=== PATIENT | female | born 1945 | race Caucasian/White ===

== ENCOUNTER 2017-08-01 13:18 | Inpatient (IN) ==
[2017-08-01 15:20] LABS: Basophils # 0.1 10*3/uL (0.0-0.2); Basophils % 0.5 % (0.0-0.8); Eosinophils # 0.3 10*3/uL (0.0-0.87); Hematocrit 36.9 VOL% (35.7-47.0); Hemoglobin 12.3 GM/DL (12.0-16.0); Immature Granulocytes % 0.2 %; Immature Granulocytes Absolute 0.02 #; Lymphocytes # 1.4 10*3/uL (1.4-4.0); Lymphocytes % 12.1 % (21.3-54.2); Mean Corpuscular HGB Conc 33.3 GM/DL (32-36); Mean Corpuscular Hemoglobin 31 PG (27-34); Mean Platelet Volume 11.2 FL (9.6-12.0); Monocytes # 1.4 10*3/uL (0.11-0.8); Monocytes % 12.8 % (1.7-12.7); Neutrophils % 71.4 % (38.7-73.9); Platelet Count 191 T/CUMM (130-400); Red Blood Count 4.01 MC/CUMM (3.8-5.5); Red Cell Distribution Width 12.7 % (9.3-17.3); White Blood Count 11.2 T/CUMM (4-12)
[2017-08-01 15:38] LABS: PT Patient Result 10.9 SECS; Partial Thromboplastin Time 30.7 SECS (0-40)
[2017-08-01 15:49] LABS: Albumin 3.2 G/DL (3.4-5.0); Bilirubin,Total 0.6 MG/DL (0.2-1.0); Calcium 8.7 MG/DL (8.5-10.1); Osmolality,Calculated 277.8 MOS/KG (273-304); Potassium 4.2 MMOL/L (3.5-5.1); Total Protein 7.6 G/DL (6.4-8.3)
[2017-08-01 15:50] LABS: Troponin I Only < 0.015 NG/ML (0.00-0.045)
[2017-08-01 16:57] LABS: Apearance,Urine CLOUDY (Clear); Bilirubin,Urine Negative (Negative); Blood, Urine Negative (Negative); Glucose,Urine (UA) Negative (Negative); Ketones,Urine Negative (Negative); Mucus,Urine Occasional /LPF (Occasional); Nitrite,Urine Negative (Negative); Protein,Urine 100 MG/DL; RBC,Urine 6 /HPF (0-4); Renal Epithelial Cells,Urine Occasional /HPF (<1); Squamous Epithelial Cell,Urine Few /HPF (0-10); Urine Color Yellow (Yellow); Urine Specific Gravity 1.018 (1.001-1.035); Urine Urobilinogen < 2.0 EU/DL (0.2-1.0); WBC,Urine 2 /HPF (0-6)
[2017-08-01] MEDS ORDERED: DOCUSATE SODIUM 100 MG CAPSULE PO PRN (17:35)
[2017-08-01] MEDS ORDERED: GLUCAGON 1 MG VIAL IM PRN (17:35)
[2017-08-01] MEDS ORDERED: MORPHINE 2 MG/1 ML SYRINGE IV PRN (17:35)
[2017-08-01] MEDS ORDERED: ONDANSETRON 4 MG/2 ML VIAL IV PRN (17:35)
[2017-08-01] MEDS ORDERED: ACETAMINOPHEN 325 MG TABLET PO PRN (17:35)
[2017-08-01] MEDS ORDERED: DEXTROSE 50% 25 GM/50 ML VIAL IV PRN (17:35)
[2017-08-01] MEDS ORDERED: diphenhydrAMINE CAP 25 MG CAPSULE PO PRN (17:35)
[2017-08-01] MEDS ORDERED: NITROGLYCERIN SL 0.4 MG TABLET SL PRN (17:38)
[2017-08-01] MEDS: INSULIN LISPRO 100 UNIT/ML SUBCUT SCH (20:46)
[2017-08-01] MEDS: INSULIN NPH 100 UNIT/ML SUBCUT SCH (20:46)
[2017-08-01] MEDS: ENOXAPARIN 30 MG/0.3 ML SYRINGE SUBCUT SCH (21:02)
[2017-08-01] MEDS: CARBAMIDE PEROXIDE 6.5% OTIC SOLN 15 ML BOTTLE BOTH EARS SCH (21:03)
[2017-08-01] MEDS: MAGNESIUM OXIDE 400 MG TABLET PO SCH (21:03)
[2017-08-01] MEDS: CARVEDILOL 25 MG TABLET PO SCH (21:03)
[2017-08-01] MEDS: FUROSEMIDE 40 MG/4 ML VIAL IV SCH (21:03)
[2017-08-01] MEDS: PANTOPRAZOLE 40 MG TABLET PO SCH (21:03)
[2017-08-02] MEDS: ALBUTEROL/IPRATROPIUM 3 ML NEB RESP TX SCH ×4 (01:35→20:00)
[2017-08-02 07:28] LABS: Albumin 3.1 G/DL (3.4-5.0); Bilirubin,Total 0.7 MG/DL (0.2-1.0); Calcium 8.7 MG/DL (8.5-10.1); Potassium 4.2 MMOL/L (3.5-5.1); Total Protein 6.6 G/DL (6.4-8.3); VLDL CHOLESTEROL 20.6 MG/DL
[2017-08-02 07:29] LABS: Risk Ratio 2.36; Thyroid Stimulating Hormone 1.92 uIU/ml (0.358-3.74)
[2017-08-02] MEDS: INSULIN LISPRO 100 UNIT/ML SUBCUT SCH ×2 (08:26→16:10)
[2017-08-02] MEDS: INSULIN NPH 100 UNIT/ML SUBCUT SCH ×2 (08:27→16:10)
[2017-08-02] MEDS: FUROSEMIDE 40 MG/4 ML VIAL IV SCH ×2 (08:38→21:18)
[2017-08-02] MEDS: ASPIRIN EC 81 MG TABLET PO SCH (08:39)
[2017-08-02] MEDS: VALSARTAN 160 MG TABLET PO SCH (08:39)
[2017-08-02] MEDS: MAGNESIUM OXIDE 400 MG TABLET PO SCH ×2 (08:39→21:17)
[2017-08-02] MEDS: CLOPIDOGREL 75 MG TABLET PO SCH (08:40)
[2017-08-02] MEDS: LOVASTATIN 20 MG TABLET PO SCH (08:40)
[2017-08-02] MEDS: CARVEDILOL 25 MG TABLET PO SCH ×2 (08:40→21:17)
[2017-08-02] MEDS: PANTOPRAZOLE 40 MG TABLET PO SCH ×2 (08:40→21:18)
[2017-08-02] MEDS: CARBAMIDE PEROXIDE 6.5% OTIC SOLN 15 ML BOTTLE BOTH EARS SCH ×2 (08:48→21:18)
[2017-08-02] MEDS: NYSTATIN 500,000 UNIT/5 ML UDCUP SWISH/SWAL SCH ×2 (17:43→21:18)
[2017-08-02] MEDS: PHENOL 1.4% THROAT SPRAY 177 ML BOTTLE PO PRN ×2 (17:45→21:19)
[2017-08-02] MEDS: ENOXAPARIN 30 MG/0.3 ML SYRINGE SUBCUT SCH (21:18)
[2017-08-03] MEDS ORDERED: ALUMINUM/MAGNES/SIMETH MAX STR 30 ML UDCUP PO PRN (00:30)
[2017-08-03] MEDS: ALBUTEROL/IPRATROPIUM 3 ML NEB RESP TX SCH ×4 (01:00→19:08)
[2017-08-03 06:33] LABS: Basophils # 0.1 10*3/uL (0.0-0.2); Basophils % 0.7 % (0.0-0.8); Eosinophils # 0.7 10*3/uL (0.0-0.87); Hematocrit 35.5 VOL% (35.7-47.0); Hemoglobin 11.6 GM/DL (12.0-16.0); Immature Granulocytes % 0.2 %; Immature Granulocytes Absolute 0.02 #; Lymphocytes # 2.2 10*3/uL (1.4-4.0); Lymphocytes % 24.3 % (21.3-54.2); Mean Corpuscular HGB Conc 32.7 GM/DL (32-36); Mean Corpuscular Hemoglobin 30 PG (27-34); Mean Platelet Volume 11.4 FL (9.6-12.0); Monocytes # 1.1 10*3/uL (0.11-0.8); Monocytes % 11.8 % (1.7-12.7); Neutrophils # 5.1 10*3/uL (1.4-7.4); Platelet Count 225 T/CUMM (130-400); Red Cell Distribution Width 12.8 % (9.3-17.3); White Blood Count 9.2 T/CUMM (4-12)
[2017-08-03 06:51] LABS: Calcium 8.3 MG/DL (8.5-10.1); Osmolality,Calculated 285.7 MOS/KG (273-304)
[2017-08-03] MEDS: INSULIN NPH 100 UNIT/ML SUBCUT SCH ×2 (09:31→18:38)
[2017-08-03] MEDS: INSULIN LISPRO 100 UNIT/ML SUBCUT SCH ×2 (09:33→18:58)
[2017-08-03] MEDS: ASPIRIN EC 81 MG TABLET PO SCH (09:35)
[2017-08-03] MEDS: VALSARTAN 160 MG TABLET PO SCH (09:36)
[2017-08-03] MEDS: CARVEDILOL 25 MG TABLET PO SCH ×2 (09:36→21:00)
[2017-08-03] MEDS: MAGNESIUM OXIDE 400 MG TABLET PO SCH ×2 (09:37→21:00)
[2017-08-03] MEDS: LOVASTATIN 20 MG TABLET PO SCH (09:37)
[2017-08-03] MEDS: NYSTATIN 500,000 UNIT/5 ML UDCUP SWISH/SWAL SCH ×3 (09:38→22:19)
[2017-08-03] MEDS: CLOPIDOGREL 75 MG TABLET PO SCH (09:38)
[2017-08-03] MEDS: PANTOPRAZOLE 40 MG TABLET PO SCH ×2 (09:39→21:00)
[2017-08-03] MEDS: FUROSEMIDE 40 MG/4 ML VIAL IV SCH ×2 (09:40→21:01)
[2017-08-03] MEDS: CARBAMIDE PEROXIDE 6.5% OTIC SOLN 15 ML BOTTLE BOTH EARS SCH ×2 (18:30→21:02)
[2017-08-03] MEDS: ENOXAPARIN 30 MG/0.3 ML SYRINGE SUBCUT SCH (21:01)
[2017-08-04] MEDS: ALBUTEROL/IPRATROPIUM 3 ML NEB RESP TX SCH ×4 (00:46→19:04)
[2017-08-04 05:46] LABS: Basophils # 0.1 10*3/uL (0.0-0.2); Basophils % 0.6 % (0.0-0.8); Eosinophils % 10.7 % (0.00-10.9); Hematocrit 35.6 VOL% (35.7-47.0); Immature Granulocytes % 0.6 %; Immature Granulocytes Absolute 0.06 #; Lymphocytes # 2.3 10*3/uL (1.4-4.0); Lymphocytes % 23.2 % (21.3-54.2); Mean Corpuscular HGB Conc 33.7 GM/DL (32-36); Mean Corpuscular Hemoglobin 31 PG (27-34); Mean Corpuscular Volume 90.4 FL (87-102); Mean Platelet Volume 10.7 FL (9.6-12.0); Monocytes % 10.5 % (1.7-12.7); Neutrophils # 5.3 10*3/uL (1.4-7.4); Neutrophils % 54.4 % (38.7-73.9); Platelet Count 249 T/CUMM (130-400); Red Blood Count 3.94 MC/CUMM (3.8-5.5); Red Cell Distribution Width 12.5 % (9.3-17.3); White Blood Count 9.8 T/CUMM (4-12)
[2017-08-04 06:09] LABS: Platelet Estimate Normal
[2017-08-04 06:10] LABS: Microcytosis Slight
[2017-08-04 06:13] LABS: Calcium 8.6 MG/DL (8.5-10.1); Osmolality,Calculated 289.1 MOS/KG (273-304); Potassium 3.9 MMOL/L (3.5-5.1)
[2017-08-04] MEDS: cloNIDine 0.1 MG TABLET PO PRN (09:19)
[2017-08-04] MEDS: CARVEDILOL 25 MG TABLET PO SCH ×2 (09:19→21:22)
[2017-08-04] MEDS: LOVASTATIN 20 MG TABLET PO SCH (09:20)
[2017-08-04] MEDS: MAGNESIUM OXIDE 400 MG TABLET PO SCH ×2 (09:20→21:22)
[2017-08-04] MEDS: ASPIRIN EC 81 MG TABLET PO SCH (09:20)
[2017-08-04] MEDS: CLOPIDOGREL 75 MG TABLET PO SCH (09:20)
[2017-08-04] MEDS: PANTOPRAZOLE 40 MG TABLET PO SCH ×2 (09:25→21:21)
[2017-08-04] MEDS: INSULIN NPH 100 UNIT/ML SUBCUT SCH ×2 (09:26→17:42)
[2017-08-04] MEDS: FUROSEMIDE 40 MG/4 ML VIAL IV SCH ×2 (09:27→21:22)
[2017-08-04] MEDS: VALSARTAN 160 MG TABLET PO SCH (12:59)
[2017-08-04] MEDS: CARBAMIDE PEROXIDE 6.5% OTIC SOLN 15 ML BOTTLE BOTH EARS SCH ×2 (13:01→21:28)
[2017-08-04] MEDS: CIPROFLOXACIN 250 MG TABLET PO SCH (13:18)
[2017-08-04] MEDS: NYSTATIN 500,000 UNIT/5 ML UDCUP SWISH/SWAL SCH ×3 (13:18→21:21)
[2017-08-04] MEDS: INSULIN LISPRO 100 UNIT/ML SUBCUT SCH ×2 (13:18→21:31)
[2017-08-04] MEDS: ENOXAPARIN 30 MG/0.3 ML SYRINGE SUBCUT SCH (21:21)
[2017-08-05] MEDS: ALBUTEROL/IPRATROPIUM 3 ML NEB RESP TX SCH ×2 (01:26→07:05)
[2017-08-05] MEDS: CIPROFLOXACIN 250 MG TABLET PO SCH ×2 (02:19→08:24)
[2017-08-05 06:18] LABS: Calcium 8.8 MG/DL (8.5-10.1); Osmolality,Calculated 287.4 MOS/KG (273-304); Potassium 4.2 MMOL/L (3.5-5.1)
[2017-08-05 07:01] VITALS: BP 140/65
[2017-08-05] MEDS: INSULIN NPH 100 UNIT/ML SUBCUT SCH (08:21)
[2017-08-05] MEDS: LOVASTATIN 20 MG TABLET PO SCH (08:23)
[2017-08-05] MEDS: cloNIDine 0.1 MG TABLET PO PRN (08:23)
[2017-08-05] MEDS: CARVEDILOL 25 MG TABLET PO SCH (08:24)
[2017-08-05] MEDS: ASPIRIN EC 81 MG TABLET PO SCH (08:24)
[2017-08-05] MEDS: CLOPIDOGREL 75 MG TABLET PO SCH (08:24)
[2017-08-05] MEDS: FUROSEMIDE 40 MG/4 ML VIAL IV SCH (08:25)
== END 2017-08-05 11:30 | disposition home or self-care (01) | DRG 291 ==
LOC: SUATTDRO → N.ED 13:18 → SUATTDRO 17:35 → N.EDINP 17:35 → N.5E 19:02
PROVIDERS: ADMIT Internal Medicine Geriatric Medicine; ATTEND Internal Medicine

== ENCOUNTER 2019-05-12 23:13 | Observation (INO) ==
[2019-05-12] MEDS ORDERED: NITROGLYCERIN SL 0.4 MG TABLET SL STA (23:51)
[2019-05-13 00:10] LABS: Basophils # 0.1 10*3/uL (0.0-0.2); Basophils % 0.8 % (0.0-0.8); Eosinophils # 0.4 10*3/uL (0.0-0.87); Hematocrit 33.5 VOL% (35.7-47.0); Hemoglobin 10.4 GM/DL (12.0-16.0); Immature Granulocytes % 0.4 %; Immature Granulocytes Absolute 0.04 #; Lymphocytes # 1.6 10*3/uL (1.4-4.0); Mean Corpuscular Volume 89.6 FL (87-102); Mean Platelet Volume 10.9 FL (9.6-12.0); Monocytes % 7.6 % (1.7-12.7); Neutrophils % 71.2 % (38.7-73.9); Platelet Count 213 T/CUMM (130-400); Red Blood Count 3.74 MC/CUMM (3.8-5.5); Red Cell Distribution Width 14.5 % (9.3-17.3); White Blood Count 10.1 T/CUMM (4-12)
[2019-05-13 00:32] LABS: Alanine Aminotransferase 19 U/L (13-56); Albumin 3.3 G/DL (3.4-5.0); Alkaline Phosphatase 100 U/L (45-117); Aspartate Amino Transferase 22 U/L (0-37); Bilirubin,Total < 0.39 MG/DL (0.2-1.0); Blood Urea Nitrogen 22 MG/DL (7-18); Calcium 8.6 MG/DL (8.5-10.1); Estimated Glom Filtration Rate 35 ML/MIN; Glucose 251 MG/DL (74-106); Osmolality,Calculated 293.1 MOS/KG (273-304); Total Protein 6.6 G/DL (6.4-8.3)
[2019-05-13] MEDS ORDERED: FUROSEMIDE 40 MG/4 ML VIAL IV STA (01:02)
[2019-05-13 01:06] LABS: Apearance,Urine CLEAR (Clear); Bacteria,Urine Occasional /HPF (Few); Bilirubin,Urine Negative (Negative); Blood, Urine Negative (Negative); Glucose,Urine (UA) 50 mg/dL (Negative); Ketones,Urine Negative (Negative); Nitrite,Urine Negative (Negative); Protein,Urine 100 MG/DL; RBC,Urine <1 /HPF (0-4); Urine Color Colorless (Yellow); Urine Specific Gravity 1.009 (1.001-1.035); Urine Urobilinogen < 2.0 EU/DL (0.2-1.0); WBC,Urine 1 /HPF (0-6)
[2019-05-13] MEDS ORDERED: MAGNESIUM SULF RIDER 4 GM in PREMIX 1 EACH IV PRN (02:53)
[2019-05-13] MEDS ORDERED: MAGNESIUM SULF RIDER 2 GM in PREMIX 1 EACH IV PRN (02:53)
[2019-05-13] MEDS ORDERED: DEXTROSE 50% 25 GM/50 ML VIAL IV PRN ×2 (02:53)
[2019-05-13] MEDS ORDERED: ACETAMINOPHEN 325 MG TABLET PO PRN (02:53)
[2019-05-13] MEDS ORDERED: GLUCAGON 1 MG VIAL IM PRN (02:53)
[2019-05-13] MEDS: INSULIN REGULAR 100 UNIT/ML SUBCUT SCH ×5 (05:37→21:18)
[2019-05-13 06:00] LABS: Basophils # 0.1 10*3/uL (0.0-0.2); Basophils % 0.8 % (0.0-0.8); Eosinophils # 0.3 10*3/uL (0.0-0.87); Hematocrit 30.6 VOL% (35.7-47.0); Hemoglobin 9.8 GM/DL (12.0-16.0); Immature Granulocytes % 0.3 %; Immature Granulocytes Absolute 0.03 #; Lymphocytes # 1.6 10*3/uL (1.4-4.0); Lymphocytes % 17.8 % (21.3-54.2); Mean Corpuscular Volume 88.4 FL (87-102); Mean Platelet Volume 11.5 FL (9.6-12.0); Monocytes % 10.4 % (1.7-12.7); Neutrophils % 67.7 % (38.7-73.9); Platelet Count 215 T/CUMM (130-400); Red Blood Count 3.46 MC/CUMM (3.8-5.5); Red Cell Distribution Width 14.6 % (9.3-17.3); White Blood Count 9.1 T/CUMM (4-12)
[2019-05-13 06:32] LABS: Albumin 3.1 G/DL (3.4-5.0); Bilirubin,Total 0.7 MG/DL (0.2-1.0); Calcium 8.8 MG/DL (8.5-10.1); Osmolality,Calculated 293.8 MOS/KG (273-304); Risk Ratio 2.37; Total Protein 6.7 G/DL (6.4-8.3); VLDL CHOLESTEROL 25.4 MG/DL
[2019-05-13] MEDS: ENOXAPARIN 40 MG/0.4 ML SYRINGE SUBCUT SCH (09:25)
[2019-05-13] MEDS: FUROSEMIDE 40 MG/4 ML VIAL IV SCH ×2 (09:25→17:14)
[2019-05-13] MEDS: ASPIRIN CHEW 81 MG TABLET PO SCH (09:26)
[2019-05-13] MEDS: PANTOPRAZOLE 40 MG TABLET PO SCH (09:26)
[2019-05-14] MEDS: LABETALOL 20 MG/4 ML SYRINGE IV PRN (01:41)
[2019-05-14] MEDS: ASPIRIN CHEW 81 MG TABLET PO SCH (08:24)
[2019-05-14] MEDS: PANTOPRAZOLE 40 MG TABLET PO SCH (08:24)
[2019-05-14] MEDS: ENOXAPARIN 40 MG/0.4 ML SYRINGE SUBCUT SCH (08:25)
[2019-05-14] MEDS: INSULIN REGULAR 100 UNIT/ML SUBCUT SCH ×4 (08:26→21:19)
[2019-05-14] MEDS: FUROSEMIDE 40 MG/4 ML VIAL IV SCH (08:27)
[2019-05-14 10:10] LABS: Calcium 8.5 MG/DL (8.5-10.1); Osmolality,Calculated 295.4 MOS/KG (273-304)
[2019-05-14] MEDS: ONDANSETRON 4 MG/2 ML VIAL IV PRN (23:30)
[2019-05-15] MEDS: LABETALOL 20 MG/4 ML SYRINGE IV PRN (04:49)
[2019-05-15 05:00] LABS: Calcium 8.6 MG/DL (8.5-10.1); Osmolality,Calculated 301.8 MOS/KG (273-304)
[2019-05-15] MEDS: INSULIN REGULAR 100 UNIT/ML SUBCUT SCH ×2 (08:20→12:42)
[2019-05-15] MEDS: ENOXAPARIN 40 MG/0.4 ML SYRINGE SUBCUT SCH (08:20)
[2019-05-15] MEDS: ASPIRIN CHEW 81 MG TABLET PO SCH (08:20)
[2019-05-15] MEDS: PANTOPRAZOLE 40 MG TABLET PO SCH (08:20)
[2019-05-15] MEDS ORDERED: FUROSEMIDE 40 MG TABLET PO SCH (09:00)
[2019-05-15] MEDS ORDERED: LOSARTAN 50 MG TABLET PO SCH (09:15)
[2019-05-15] MEDS ORDERED: ESCITALOPRAM 10 MG TABLET PO SCH (09:15)
[2019-05-15] MEDS ORDERED: MULTIVITAMIN (CENTRUM) TABLET PO SCH (09:15)
[2019-05-15] MEDS ORDERED: CLOPIDOGREL 75 MG TABLET PO SCH (09:30)
[2019-05-15] MEDS ORDERED: ASPIRIN EC 81 MG TABLET PO SCH (09:30)
[2019-05-15] MEDS ORDERED: DOXAZOSIN 2 MG TABLET PO SCH (09:30)
[2019-05-15] MEDS ORDERED: SPIRONOLACTONE 50 MG TABLET PO SCH (09:30)
[2019-05-15] MEDS ORDERED: DOXAZOSIN 1 MG TABLET PO SCH (09:30)
[2019-05-15] MEDS ORDERED: carvediloL 25 MG TABLET PO SCH (09:30)
[2019-05-15] MEDS: ONDANSETRON 4 MG/2 ML VIAL IV PRN (12:43)
[2019-05-15 16:52] VITALS: BP 150/57
[2019-05-15] MEDS ORDERED: ATORVASTATIN 80 MG TABLET PO SCH (21:00)
[2019-05-15] MEDS ORDERED: BUDESONIDE/FORMOTEROL 160-4.5 INHALER 6 GM INH SCH (21:00)
[2019-05-16] MEDS ORDERED: LEVOTHYROXINE 25 MCG TABLET PO SCH (06:30)
[2019-05-16] MEDS ORDERED: MAGNESIUM OXIDE 400 MG TABLET PO SCH (09:00)
[2019-05-16] MEDS ORDERED: MONTELUKAST 10 MG TABLET PO SCH (09:00)
== END 2019-05-15 17:00 | disposition home or self-care (01) | DRG 291 ==
LOC: N.ED 23:13 → N.EDINP 05-13 02:53 → SUATTDRO 05-13 02:53 → INTOOBSV 05-13 02:53 → N.2E 05-13 03:17
PROVIDERS: ADMIT Internal Medicine; ATTEND Internal Medicine

== ENCOUNTER 2020-02-04 00:08 | Observation (INO) ==
[2020-02-04] MEDS ORDERED: FUROSEMIDE 40 MG/4 ML VIAL IV STA (00:36)
[2020-02-04] MEDS ORDERED: NITROGLYCERIN 2% OINT 1 INCH/GM PACK TOP STA (00:36)
[2020-02-04] MEDS ORDERED: ASPIRIN 325 MG TABLET PO STA (00:37)
[2020-02-04 00:56] LABS: ABG Base Excess -3.6 MMOL/L (-2.5-2.5); ABG HCO3 21.4 MMOL/L (20-26); ABG Oxygen Saturation 99.4 % (95-100); ABG TCO2 20.1 MMOL/L (23-27); Allen Test Positive
[2020-02-04 01:35] LABS: Basophils % 0.5 % (0.0-0.8); Eosinophils # 0.6 10*3/uL (0.0-0.87); Eosinophils % 6.4 % (0.00-10.9); Hematocrit 24.6 VOL% (35.7-47.0); Hemoglobin 7.8 GM/DL (12.0-16.0); Immature Granulocytes % 0.3 %; Immature Granulocytes Absolute 0.03 #; Lymphocytes # 1.2 10*3/uL (1.4-4.0); Lymphocytes % 13.9 % (21.3-54.2); Mean Corpuscular HGB Conc 31.7 GM/DL (32-36); Mean Corpuscular Volume 87.5 FL (87-102); Mean Platelet Volume 11.7 FL (9.6-12.0); Monocytes % 8.8 % (1.7-12.7); Neutrophils % 70.1 % (38.7-73.9); Platelet Count 134 T/CUMM (130-400); Red Blood Count 2.81 MC/CUMM (3.8-5.5); Red Cell Distribution Width 19.9 % (9.3-17.3); White Blood Count 8.7 T/CUMM (4-12)
[2020-02-04 01:55] LABS: Albumin 2.8 G/DL (3.4-5.0); Bilirubin,Total 0.5 MG/DL (0.2-1.0); Calcium 8.2 MG/DL (8.5-10.1); Total Protein 6.5 G/DL (6.4-8.3)
[2020-02-04 02:08] LABS: INR 1.1; PT Patient Result 11.4 SECS (9.8-11.9)
[2020-02-04] MEDS ORDERED: ACETAMINOPHEN 325 MG TABLET PO PRN (04:04)
[2020-02-04] MEDS ORDERED: DEXTROSE 50% 25 GM/50 ML VIAL IV PRN (04:04)
[2020-02-04] MEDS ORDERED: GLUCAGON 1 MG VIAL IM PRN (04:04)
[2020-02-04 04:21] LABS: Ferritin 33.2 ng/ml (8-252)
[2020-02-04 05:19] LABS: % Iron Saturation 14.6 % (18-50)
[2020-02-04] MEDS: INSULIN REGULAR 100 UNIT/ML SUBCUT SCH ×4 (08:49→20:17)
[2020-02-04] MEDS: PANTOPRAZOLE 40 MG TABLET PO SCH (08:50)
[2020-02-04] MEDS: predniSONE 20 MG TABLET PO SCH (08:50)
[2020-02-04] MEDS: ASPIRIN EC 81 MG TABLET PO SCH (08:51)
[2020-02-04] MEDS: MULTIVITAMIN (CENTRUM) TABLET PO SCH (08:51)
[2020-02-04] MEDS: ENOXAPARIN 40 MG/0.4 ML SYRINGE SUBCUT SCH (08:51)
[2020-02-04] MEDS: FUROSEMIDE 40 MG/4 ML VIAL IV SCH ×2 (08:51→16:03)
[2020-02-04] MEDS: carvediloL 25 MG TABLET PO SCH ×2 (08:51→16:30)
[2020-02-04] MEDS: ASCORBIC ACID 500 MG TABLET PO SCH (08:52)
[2020-02-04] MEDS ORDERED: ZINC SULFATE 220 MG CAPSULE PO SCH (09:00)
[2020-02-04] MEDS ORDERED: hydrALAZINE 25 MG TABLET PO SCH (09:00)
[2020-02-04] MEDS: ALBUTEROL INHALER 18 GM INH SCH ×3 (10:28→20:22)
[2020-02-04] MEDS: DOXYCYCLINE HYCLATE INJ 100 MG in SODIUM CHLORIDE 0.9% 100 ML IV SCH ×2 (10:31→21:18)
[2020-02-04] MEDS ORDERED: ATORVASTATIN 80 MG TABLET PO SCH (21:00)
[2020-02-04] MEDS ORDERED: CLOPIDOGREL 75 MG TABLET PO SCH (21:00)
[2020-02-05] MEDS: ALBUTEROL INHALER 18 GM INH SCH ×2 (00:47→08:11)
[2020-02-05 05:23] LABS: Basophils % 0.3 % (0.0-0.8); Eosinophils % 0.4 % (0.00-10.9); Hematocrit 25.1 VOL% (35.7-47.0); Hemoglobin 7.9 GM/DL (12.0-16.0); Immature Granulocytes % 0.5 %; Immature Granulocytes Absolute 0.05 #; Lymphocytes # 1.5 10*3/uL (1.4-4.0); Lymphocytes % 14.6 % (21.3-54.2); Mean Corpuscular HGB Conc 31.5 GM/DL (32-36); Mean Corpuscular Volume 85.7 FL (87-102); Monocytes % 10.2 % (1.7-12.7); Platelet Count 208 T/CUMM (130-400); Red Blood Count 2.93 MC/CUMM (3.8-5.5); Red Cell Distribution Width 20.3 % (9.3-17.3)
[2020-02-05] MEDS ORDERED: LEVOTHYROXINE 25 MCG TABLET PO SCH (06:00)
[2020-02-05 06:10] LABS: Albumin 2.8 G/DL (3.4-5.0); Bilirubin,Total 1.3 MG/DL (0.2-1.0); Calcium 8.3 MG/DL (8.5-10.1); Osmolality,Calculated 287.1 MOS/KG (273-304); Thyroid Stimulating Hormone 1.66 uIU/ml (0.358-3.74); Total Protein 6.7 G/DL (6.4-8.3)
[2020-02-05] MEDS: INSULIN REGULAR 100 UNIT/ML SUBCUT SCH ×2 (07:36→11:51)
[2020-02-05] MEDS: MULTIVITAMIN (CENTRUM) TABLET PO SCH (08:11)
[2020-02-05] MEDS: PANTOPRAZOLE 40 MG TABLET PO SCH (08:11)
[2020-02-05] MEDS: ASPIRIN EC 81 MG TABLET PO SCH (08:11)
[2020-02-05] MEDS: ASCORBIC ACID 500 MG TABLET PO SCH (08:11)
[2020-02-05] MEDS: predniSONE 20 MG TABLET PO SCH (08:11)
[2020-02-05] MEDS: carvediloL 25 MG TABLET PO SCH (08:11)
[2020-02-05] MEDS: FUROSEMIDE 40 MG/4 ML VIAL IV SCH (08:12)
[2020-02-05] MEDS: ENOXAPARIN 40 MG/0.4 ML SYRINGE SUBCUT SCH (08:12)
[2020-02-05] MEDS: DOXYCYCLINE HYCLATE INJ 100 MG in SODIUM CHLORIDE 0.9% 100 ML IV SCH (10:14)
[2020-02-05 11:41] VITALS: BP 132/50
== END 2020-02-05 11:58 | disposition home or self-care (01) ==
LOC: N.ED 00:08 → N.EDINP 00:08 → N.CC 06:08
PROVIDERS: ADMIT Internal Medicine; ATTEND Internal Medicine

== ENCOUNTER 2020-05-05 09:01 | Inpatient (IN) ==
[2020-05-05] MEDS ORDERED: ASPIRIN 325 MG TABLET PO STA (09:58)
[2020-05-05 11:33] LABS: Basophils % 0.6 % (0.0-0.8); Eosinophils # 0.2 10*3/uL (0.0-0.87); Eosinophils % 3.1 % (0.00-10.9); Hematocrit 22.7 VOL% (35.7-47.0); Hemoglobin 7.3 GM/DL (12.0-16.0); Immature Granulocytes % 0.6 %; Immature Granulocytes Absolute 0.04 #; Lymphocytes # 1.1 10*3/uL (1.4-4.0); Lymphocytes % 15.4 % (21.3-54.2); Mean Corpuscular HGB Conc 32.2 GM/DL (32-36); Mean Corpuscular Volume 93.4 FL (87-102); Mean Platelet Volume 11.4 FL (9.6-12.0); Neutrophils % 73.3 % (38.7-73.9); Platelet Count 200 T/CUMM (130-400); Red Blood Count 2.43 MC/CUMM (3.8-5.5)
[2020-05-05] MEDS ORDERED: MORPHINE 4 MG/1 ML VIAL IV STA (11:37)
[2020-05-05] MEDS ORDERED: ONDANSETRON 4 MG/2 ML VIAL IV STA (11:37)
[2020-05-05 12:24] LABS: Albumin 3.7 G/DL (3.4-5.0); Bilirubin,Total 0.4 MG/DL (0.2-1.0); Calcium 8.7 MG/DL (8.5-10.1); Osmolality,Calculated 309.1 MOS/KG (273-304)
[2020-05-05] MEDS ORDERED: ALBUTEROL 2.5 MG/3 ML NEB RESP TX STA (12:34)
[2020-05-05] MEDS ORDERED: DEXTROSE 50% 25 GM/50 ML VIAL IV STA (12:40)
[2020-05-05] MEDS ORDERED: INSULIN REGULAR 100 UNIT/ML IV STA (12:40)
[2020-05-05] MEDS ORDERED: FUROSEMIDE 40 MG/4 ML VIAL IV STA (12:45)
[2020-05-05] MEDS ORDERED: DEXTROSE 50% 25 GM/50 ML SYRINGE IV ONE (12:49)
[2020-05-05] MEDS ORDERED: ONDANSETRON 4 MG/2 ML VIAL IV PRN (13:50)
[2020-05-05] MEDS ORDERED: DEXTROSE 50% 25 GM/50 ML VIAL IV PRN ×2 (13:50)
[2020-05-05] MEDS ORDERED: ACETAMINOPHEN 325 MG TABLET PO PRN (13:50)
[2020-05-05] MEDS ORDERED: GLUCAGON 1 MG VIAL IM PRN ×2 (13:50)
[2020-05-05] MEDS ORDERED: FUROSEMIDE 100 MG/10 ML VIAL ONE (13:52)
[2020-05-05] MEDS ORDERED: ACETAMINOPHEN 500 MG TABLET PO PRN (15:00)
[2020-05-05] MEDS ORDERED: BUDESONIDE/FORMOTEROL 160-4.5 INHALER 6 GM INH PRN (15:00)
[2020-05-05] MEDS: MAGNESIUM OXIDE 400 MG TABLET PO SCH (17:52)
[2020-05-05] MEDS: INSULIN LISPRO 100 UNIT/ML SUBCUT SCH ×3 (17:52→23:55)
[2020-05-05] MEDS: ALBUTEROL 2.5 MG/3 ML NEB RESP TX SCH (19:24)
[2020-05-05] MEDS ORDERED: ENOXAPARIN 30 MG/0.3 ML SYRINGE SUBCUT SCH (21:00)
[2020-05-05] MEDS: ATORVASTATIN 80 MG TABLET PO SCH (22:01)
[2020-05-05] MEDS: carvediloL 25 MG TABLET PO SCH (22:02)
[2020-05-05] MEDS: FERROUS SULFATE 325 MG TABLET PO SCH (22:02)
[2020-05-05] MEDS: HEPARIN 5,000 UNIT/1 ML VIAL SUBCUT SCH (22:02)
[2020-05-06] MEDS: ALBUTEROL 2.5 MG/3 ML NEB RESP TX SCH ×4 (02:05→20:22)
[2020-05-06 05:47] LABS: Basophils # 0.1 10*3/uL (0.0-0.2); Eosinophils # 0.5 10*3/uL (0.0-0.87); Eosinophils % 7.5 % (0.00-10.9); Hematocrit 20.8 VOL% (35.7-47.0); Hemoglobin 6.6 GM/DL (12.0-16.0); Immature Granulocytes % 0.4 %; Immature Granulocytes Absolute 0.03 #; Lymphocytes # 1.8 10*3/uL (1.4-4.0); Lymphocytes % 26.2 % (21.3-54.2); Mean Corpuscular HGB Conc 31.7 GM/DL (32-36); Mean Corpuscular Volume 93.3 FL (87-102); Mean Platelet Volume 11.3 FL (9.6-12.0); Monocytes % 12.1 % (1.7-12.7); Neutrophils % 52.8 % (38.7-73.9); Platelet Count 171 T/CUMM (130-400); Red Blood Count 2.23 MC/CUMM (3.8-5.5); Red Cell Distribution Width 15.1 % (9.3-17.3); White Blood Count 6.9 T/CUMM (4-12)
[2020-05-06] MEDS: HEPARIN 5,000 UNIT/1 ML VIAL SUBCUT SCH ×3 (06:07→21:31)
[2020-05-06 06:33] LABS: Calcium 8.5 MG/DL (8.5-10.1); Osmolality,Calculated 306.5 MOS/KG (273-304)
[2020-05-06] MEDS ORDERED: SODIUM CHLORIDE 0.9% 1,000 ML IV PRN (07:38)
[2020-05-06] MEDS: INSULIN LISPRO 100 UNIT/ML SUBCUT SCH ×4 (07:41→21:43)
[2020-05-06] MEDS ORDERED: SODIUM POLYSTYRENE SULFATE 15 GM/60 ML BOTTLE PO ONE ×2 (08:09→17:35)
[2020-05-06] MEDS ORDERED: LOSARTAN 50 MG TABLET PO SCH (09:00)
[2020-05-06] MEDS ORDERED: FUROSEMIDE 40 MG/4 ML VIAL IV SCH (09:00)
[2020-05-06] MEDS: DOXAZOSIN 1 MG TABLET PO SCH (10:16)
[2020-05-06] MEDS: carvediloL 25 MG TABLET PO SCH ×2 (10:16→21:31)
[2020-05-06] MEDS: ZINC GLUCONATE 50 MG TABLET PO SCH (10:16)
[2020-05-06] MEDS: ESCITALOPRAM 10 MG TABLET PO SCH (10:16)
[2020-05-06] MEDS: FERROUS SULFATE 325 MG TABLET PO SCH ×2 (10:17→21:31)
[2020-05-06] MEDS: CHOLECALCIFEROL 1,000 UNIT TABLET PO SCH (10:17)
[2020-05-06] MEDS: CLOPIDOGREL 75 MG TABLET PO SCH (10:17)
[2020-05-06] MEDS: MAGNESIUM OXIDE 400 MG TABLET PO SCH ×2 (10:17→17:46)
[2020-05-06] MEDS: MULTIVITAMIN (CENTRUM) TABLET PO SCH (10:17)
[2020-05-06] MEDS: ASCORBIC ACID 500 MG TABLET PO SCH (10:17)
[2020-05-06] MEDS: ATORVASTATIN 80 MG TABLET PO SCH (21:31)
[2020-05-07] MEDS: ALBUTEROL 2.5 MG/3 ML NEB RESP TX SCH ×4 (00:53→21:35)
[2020-05-07 04:53] LABS: ABG Base Excess -3.7 MMOL/L (-2.5-2.5); ABG HCO3 21.4 MMOL/L (20-26); ABG Oxygen Saturation 98.3 % (95-100); ABG PCO2 37.8 MM HG (35-48); ABG TCO2 19.7 MMOL/L (23-27); Allen Test Positive
[2020-05-07] MEDS: HEPARIN 5,000 UNIT/1 ML VIAL SUBCUT SCH ×3 (05:26→21:20)
[2020-05-07 06:41] LABS: Basophils # 0.1 10*3/uL (0.0-0.2); Basophils % 1.2 % (0.0-0.8); Eosinophils # 0.6 10*3/uL (0.0-0.87); Eosinophils % 9.4 % (0.00-10.9); Hematocrit 28.6 VOL% (35.7-47.0); Immature Granulocytes % 0.3 %; Immature Granulocytes Absolute 0.02 #; Lymphocytes # 1.4 10*3/uL (1.4-4.0); Lymphocytes % 20.5 % (21.3-54.2); Mean Corpuscular HGB Conc 32.5 GM/DL (32-36); Mean Corpuscular Volume 94.7 FL (87-102); Mean Platelet Volume 11.4 FL (9.6-12.0); Monocytes % 12.3 % (1.7-12.7); Neutrophils % 56.3 % (38.7-73.9); Platelet Count 160 T/CUMM (130-400); Red Blood Count 3.02 MC/CUMM (3.8-5.5); Red Cell Distribution Width 14.6 % (9.3-17.3); White Blood Count 6.7 T/CUMM (4-12)
[2020-05-07 06:43] LABS: Hemoglobin 9.3 GM/DL (12.0-16.0)
[2020-05-07 07:17] LABS: Calcium 8.8 MG/DL (8.5-10.1); Osmolality,Calculated 307.3 MOS/KG (273-304)
[2020-05-07 07:19] LABS: Parathyroid Hormone Intact 231.1 PG/ML (18.4-80.1)
[2020-05-07 07:50] LABS: Uric Acid 9.2 MG/DL (2.6-6.0)
[2020-05-07] MEDS: MAGNESIUM OXIDE 400 MG TABLET PO SCH ×2 (09:47→16:34)
[2020-05-07] MEDS: ZINC GLUCONATE 50 MG TABLET PO SCH (09:47)
[2020-05-07] MEDS: CLOPIDOGREL 75 MG TABLET PO SCH (09:47)
[2020-05-07] MEDS: DOXAZOSIN 1 MG TABLET PO SCH (09:47)
[2020-05-07] MEDS: MULTIVITAMIN (CENTRUM) TABLET PO SCH (09:47)
[2020-05-07] MEDS: CHOLECALCIFEROL 1,000 UNIT TABLET PO SCH (09:47)
[2020-05-07] MEDS: carvediloL 25 MG TABLET PO SCH ×2 (09:47→21:20)
[2020-05-07] MEDS: FERROUS SULFATE 325 MG TABLET PO SCH ×2 (09:47→21:20)
[2020-05-07] MEDS: ASCORBIC ACID 500 MG TABLET PO SCH (09:48)
[2020-05-07] MEDS: INSULIN LISPRO 100 UNIT/ML SUBCUT SCH ×4 (09:48→21:20)
[2020-05-07] MEDS: ESCITALOPRAM 10 MG TABLET PO SCH (09:48)
[2020-05-07 10:16] LABS: Bacteria,Urine Occasional /HPF (Few); Bilirubin,Urine Negative (Negative); Blood, Urine Small mg/dL (Negative); Glucose,Urine (UA) Negative (Negative); Ketones,Urine Negative (Negative); Nitrite,Urine Positive (Negative); Protein,Urine 30 MG/DL; RBC,Urine 18 /HPF (0-4); Squamous Epithelial Cell,Urine Occasional /HPF (0-10); Urine Appearance CLOUDY (Clear); Urine Color Yellow (Yellow); Urine Specific Gravity 1.014 (1.001-1.035); Urine Urobilinogen < 2.0 EU/DL (0.2-1.0); WBC,Urine 197 /HPF (0-6)
[2020-05-07] MEDS: ATORVASTATIN 80 MG TABLET PO SCH (21:20)
[2020-05-08] MEDS: ALBUTEROL 2.5 MG/3 ML NEB RESP TX SCH ×4 (00:45→19:12)
[2020-05-08] MEDS: HEPARIN 5,000 UNIT/1 ML VIAL SUBCUT SCH ×3 (05:04→21:13)
[2020-05-08] MEDS: INSULIN LISPRO 100 UNIT/ML SUBCUT SCH ×4 (08:05→21:13)
[2020-05-08] MEDS: CHOLECALCIFEROL 1,000 UNIT TABLET PO SCH (08:43)
[2020-05-08] MEDS: MULTIVITAMIN (CENTRUM) TABLET PO SCH (08:43)
[2020-05-08] MEDS: carvediloL 25 MG TABLET PO SCH ×2 (08:43→21:13)
[2020-05-08] MEDS: ESCITALOPRAM 10 MG TABLET PO SCH (08:43)
[2020-05-08] MEDS: CLOPIDOGREL 75 MG TABLET PO SCH (08:43)
[2020-05-08] MEDS: ASCORBIC ACID 500 MG TABLET PO SCH (08:43)
[2020-05-08] MEDS: MAGNESIUM OXIDE 400 MG TABLET PO SCH ×2 (08:43→16:00)
[2020-05-08] MEDS: DOXAZOSIN 1 MG TABLET PO SCH (08:43)
[2020-05-08] MEDS: FERROUS SULFATE 325 MG TABLET PO SCH ×2 (08:43→21:13)
[2020-05-08] MEDS: ZINC GLUCONATE 50 MG TABLET PO SCH (08:43)
[2020-05-08 08:51] LABS: Basophils # 0.1 10*3/uL (0.0-0.2); Basophils % 0.6 % (0.0-0.8); Eosinophils # 0.8 10*3/uL (0.0-0.87); Eosinophils % 9.9 % (0.00-10.9); Hematocrit 29.9 VOL% (35.7-47.0); Hemoglobin 9.5 GM/DL (12.0-16.0); Immature Granulocytes % 0.4 %; Immature Granulocytes Absolute 0.03 #; Lymphocytes # 1.2 10*3/uL (1.4-4.0); Lymphocytes % 13.8 % (21.3-54.2); Mean Corpuscular HGB Conc 31.8 GM/DL (32-36); Mean Corpuscular Volume 93.7 FL (87-102); Mean Platelet Volume 10.7 FL (9.6-12.0); Monocytes % 9.7 % (1.7-12.7); Neutrophils % 65.6 % (38.7-73.9); Platelet Count 158 T/CUMM (130-400); Red Blood Count 3.19 MC/CUMM (3.8-5.5); Red Cell Distribution Width 14.9 % (9.3-17.3); White Blood Count 8.5 T/CUMM (4-12)
[2020-05-08 09:15] LABS: Calcium 8.9 MG/DL (8.5-10.1); Osmolality,Calculated 303.3 MOS/KG (273-304)
[2020-05-08] MEDS ORDERED: guaiFENesin 200 MG/10 ML UDCUP PO PRN (10:50)
[2020-05-08] MEDS ORDERED: INSULIN REGULAR 10 UNIT, CALCIUM GLUCONATE 1,000 MG in DEXTROSE 10% 250 ML IV ONE (11:30)
[2020-05-08 11:46] LABS: Total Protein 24 Hr Ur Result 595 MG/24HR (0-149.1); Total Volume,Urine 850 ML (400-2000)
[2020-05-08] MEDS: cefTRIAXone 1,000 MG in SYRINGE 1 EACH IV SCH (12:15)
[2020-05-08] MEDS: SODIUM ZIRCONIUM CYCLOSILICATE 10 GM PACK PO SCH ×3 (12:15→21:14)
[2020-05-08] MEDS: ATORVASTATIN 80 MG TABLET PO SCH (21:14)
[2020-05-09 05:13] LABS: Basophils % 0.5 % (0.0-0.8); Eosinophils # 0.8 10*3/uL (0.0-0.87); Eosinophils % 10.5 % (0.00-10.9); Hematocrit 27.4 VOL% (35.7-47.0); Hemoglobin 8.5 GM/DL (12.0-16.0); Immature Granulocytes % 0.6 %; Immature Granulocytes Absolute 0.05 #; Lymphocytes # 1.4 10*3/uL (1.4-4.0); Lymphocytes % 17.6 % (21.3-54.2); Mean Corpuscular Volume 95.8 FL (87-102); Monocytes % 12.8 % (1.7-12.7); Platelet Count 147 T/CUMM (130-400); Red Blood Count 2.86 MC/CUMM (3.8-5.5); Red Cell Distribution Width 14.9 % (9.3-17.3); White Blood Count 7.9 T/CUMM (4-12)
[2020-05-09 05:42] LABS: Calcium 8.7 MG/DL (8.5-10.1); Osmolality,Calculated 297.4 MOS/KG (273-304)
[2020-05-09] MEDS: HEPARIN 5,000 UNIT/1 ML VIAL SUBCUT SCH ×3 (05:45→22:26)
[2020-05-09 07:39] LABS: Immunoglobulin A (Chem) 185 MG/DL (70-400); Immunoglobulin G (Chem) 934 MG/DL (700-1600); Immunoglobulin M (Chem) 82 MG/DL (40-230)
[2020-05-09 07:42] LABS: 24 Hr Protein (Bench) 595 MG/24HR (0-149.1)
[2020-05-09] MEDS: ALBUTEROL 2.5 MG/3 ML NEB RESP TX SCH ×4 (07:42→20:05)
[2020-05-09 08:16] LABS: Albumin (SPE) 4.6 G/DL (3.2-5.3); Alpha 1 (SPE) 0.2 G/DL (0.1-0.4); Alpha 1 (SPE) Rel % 2.6 %; Alpha 2 (SPE) 0.8 G/DL (0.4-1.0); Alpha 2 (SPE) Rel % 11.2 %; Beta (SPE) 0.7 G/DL (0.5-1.1); Beta (SPE) Rel % 10.1 %; Gamma (SPE) 0.7 G/DL (0.7-1.7); Gamma (SPE) Rel % 10.1 %
[2020-05-09 08:44] LABS: Albumin (UPE) 429.5 MG/24H; Albumin (UPE) Rel % 72.2 %; Alpha 1 (UPE) 16.1 MG/24H; Alpha 1 (UPE) Rel % 2.7 %; Alpha 2 (UPE) 43.4 MG/24H; Alpha 2 (UPE) Rel % 7.3 %; Beta (UPE) Rel % 7.4 %; Gamma (UPE) 61.9 MG/24H; Gamma (UPE) Rel % 10.4 %
[2020-05-09] MEDS: INSULIN LISPRO 100 UNIT/ML SUBCUT SCH ×4 (08:50→22:39)
[2020-05-09] MEDS: DOXAZOSIN 1 MG TABLET PO SCH (08:50)
[2020-05-09] MEDS: CHOLECALCIFEROL 1,000 UNIT TABLET PO SCH (08:51)
[2020-05-09] MEDS: CLOPIDOGREL 75 MG TABLET PO SCH (08:51)
[2020-05-09] MEDS: ZINC GLUCONATE 50 MG TABLET PO SCH (08:51)
[2020-05-09] MEDS: MULTIVITAMIN (CENTRUM) TABLET PO SCH (08:52)
[2020-05-09] MEDS: ESCITALOPRAM 10 MG TABLET PO SCH (08:52)
[2020-05-09] MEDS: carvediloL 25 MG TABLET PO SCH ×2 (08:52→22:23)
[2020-05-09] MEDS: ASCORBIC ACID 500 MG TABLET PO SCH (08:52)
[2020-05-09] MEDS: FERROUS SULFATE 325 MG TABLET PO SCH ×2 (08:52→22:23)
[2020-05-09] MEDS: MAGNESIUM OXIDE 400 MG TABLET PO SCH ×2 (08:55→17:17)
[2020-05-09] MEDS: SODIUM ZIRCONIUM CYCLOSILICATE 10 GM PACK PO SCH ×3 (08:59→22:25)
[2020-05-09] MEDS: cefTRIAXone 1,000 MG in SYRINGE 1 EACH IV SCH (12:04)
[2020-05-09] MEDS: ATORVASTATIN 80 MG TABLET PO SCH (22:22)
[2020-05-10] MEDS: ALBUTEROL 2.5 MG/3 ML NEB RESP TX SCH ×5 (01:20→19:10)
[2020-05-10 01:36] LABS: ABG Base Excess -3.8 MMOL/L (-2.5-2.5); ABG HCO3 21.2 MMOL/L (20-26); ABG Oxygen Saturation 93.9 % (95-100); ABG PCO2 35.9 MM HG (35-48); ABG PH 7.373 (7.35-7.45); ABG PO2 70.8 MM HG (80-95); ABG TCO2 19.2 MMOL/L (23-27)
[2020-05-10 04:51] LABS: Basophils # 0.1 10*3/uL (0.0-0.2); Basophils % 0.5 % (0.0-0.8); Eosinophils # 0.6 10*3/uL (0.0-0.87); Eosinophils % 5.9 % (0.00-10.9); Hematocrit 26.4 VOL% (35.7-47.0); Hemoglobin 8.4 GM/DL (12.0-16.0); Immature Granulocytes % 0.4 %; Immature Granulocytes Absolute 0.04 #; Lymphocytes # 1.1 10*3/uL (1.4-4.0); Lymphocytes % 11.8 % (21.3-54.2); Mean Corpuscular HGB Conc 31.8 GM/DL (32-36); Mean Corpuscular Volume 93.6 FL (87-102); Monocytes % 9.8 % (1.7-12.7); Neutrophils % 71.6 % (38.7-73.9); Platelet Count 154 T/CUMM (130-400); Red Blood Count 2.82 MC/CUMM (3.8-5.5); Red Cell Distribution Width 14.9 % (9.3-17.3); White Blood Count 9.5 T/CUMM (4-12)
[2020-05-10 05:12] LABS: Calcium 8.5 MG/DL (8.5-10.1); Osmolality,Calculated 297.4 MOS/KG (273-304)
[2020-05-10] MEDS: HEPARIN 5,000 UNIT/1 ML VIAL SUBCUT SCH ×3 (05:26→20:59)
[2020-05-10] MEDS: INSULIN LISPRO 100 UNIT/ML SUBCUT SCH ×4 (09:04→20:57)
[2020-05-10] MEDS: ESCITALOPRAM 10 MG TABLET PO SCH (09:04)
[2020-05-10] MEDS: carvediloL 25 MG TABLET PO SCH ×2 (09:04→20:56)
[2020-05-10] MEDS: CLOPIDOGREL 75 MG TABLET PO SCH (09:04)
[2020-05-10] MEDS: CHOLECALCIFEROL 1,000 UNIT TABLET PO SCH (09:04)
[2020-05-10] MEDS: DOXAZOSIN 1 MG TABLET PO SCH (09:04)
[2020-05-10] MEDS: MULTIVITAMIN (CENTRUM) TABLET PO SCH (09:05)
[2020-05-10] MEDS: FERROUS SULFATE 325 MG TABLET PO SCH ×2 (09:05→20:56)
[2020-05-10] MEDS: ZINC GLUCONATE 50 MG TABLET PO SCH (09:05)
[2020-05-10] MEDS: ASCORBIC ACID 500 MG TABLET PO SCH (09:05)
[2020-05-10] MEDS: MAGNESIUM OXIDE 400 MG TABLET PO SCH ×2 (09:10→16:06)
[2020-05-10] MEDS: cefTRIAXone 1,000 MG in SYRINGE 1 EACH IV SCH (09:11)
[2020-05-10] MEDS ORDERED: ALBUTEROL/IPRATROPIUM 3 ML NEB RESP TX PRN (13:18)
[2020-05-10] MEDS ORDERED: methylPREDNISolone SOD SUC 40 MG/1 ML VIAL IV ONE (15:00)
[2020-05-10] MEDS: ATORVASTATIN 80 MG TABLET PO SCH (20:55)
[2020-05-11] MEDS: ALBUTEROL 2.5 MG/3 ML NEB RESP TX SCH ×4 (00:44→11:05)
[2020-05-11] MEDS: HEPARIN 5,000 UNIT/1 ML VIAL SUBCUT SCH ×2 (05:40→14:19)
[2020-05-11 05:52] LABS: Hemoglobin 8.8 GM/DL (12.0-16.0); Red Blood Count 2.95 MC/CUMM (3.8-5.5); White Blood Count 5.5 T/CUMM (4-12)
[2020-05-11 05:53] LABS: Hematocrit 27.7 VOL% (35.7-47.0); Immature Granulocytes % 1.8 %; Lymphocytes # 0.4 10*3/uL (1.4-4.0); Lymphocytes % 7.9 % (21.3-54.2); Mean Corpuscular HGB Conc 31.8 GM/DL (32-36); Mean Corpuscular Volume 93.9 FL (87-102); Mean Platelet Volume 11.2 FL (9.6-12.0); Monocytes % 1.7 % (1.7-12.7); Neutrophils % 88.6 % (38.7-73.9); Platelet Count 149 T/CUMM (130-400); Red Cell Distribution Width 14.9 % (9.3-17.3)
[2020-05-11 06:08] LABS: Calcium 8.7 MG/DL (8.5-10.1); Osmolality,Calculated 304.3 MOS/KG (273-304)
[2020-05-11 06:17] LABS: Troponin I 0.056 NG/ML (0.00-0.045)
[2020-05-11] MEDS: ZINC GLUCONATE 50 MG TABLET PO SCH (08:07)
[2020-05-11] MEDS: CHOLECALCIFEROL 1,000 UNIT TABLET PO SCH (08:08)
[2020-05-11] MEDS: ASCORBIC ACID 500 MG TABLET PO SCH (08:08)
[2020-05-11] MEDS: DOXAZOSIN 1 MG TABLET PO SCH (08:08)
[2020-05-11] MEDS: ESCITALOPRAM 10 MG TABLET PO SCH (08:08)
[2020-05-11] MEDS: carvediloL 25 MG TABLET PO SCH (08:09)
[2020-05-11] MEDS: MULTIVITAMIN (CENTRUM) TABLET PO SCH (08:09)
[2020-05-11] MEDS: MAGNESIUM OXIDE 400 MG TABLET PO SCH (08:09)
[2020-05-11] MEDS: INSULIN LISPRO 100 UNIT/ML SUBCUT SCH ×2 (08:15→12:15)
[2020-05-11] MEDS: cefTRIAXone 1,000 MG in SYRINGE 1 EACH IV SCH (08:17)
[2020-05-11] MEDS: FERROUS SULFATE 325 MG TABLET PO SCH (08:30)
[2020-05-11] MEDS: CLOPIDOGREL 75 MG TABLET PO SCH (08:30)
[2020-05-11] MEDS ORDERED: predniSONE 20 MG TABLET PO SCH (09:00)
[2020-05-11 11:16] VITALS: BP 124/48
== END 2020-05-11 15:35 | disposition home health service (06) | DRG 291 ==
LOC: N.ED 09:01 → SUATTDRO 13:50 → N.EDINP 13:50 → N.5E 15:04
PROVIDERS: ADMIT Internal Medicine; ATTEND Internal Medicine

== ENCOUNTER 2020-08-18 16:27 | Inpatient (IN) ==
[2020-08-18] MEDS ORDERED: SODIUM CHLORIDE 0.9% 500 ML IV STA ×2 (17:24→19:32)
[2020-08-18] MEDS ORDERED: MORPHINE 4 MG/1 ML VIAL IV STA (17:24)
[2020-08-18] MEDS ORDERED: ONDANSETRON 4 MG/2 ML VIAL IV STA (17:24)
[2020-08-18] MEDS ORDERED: PANTOPRAZOLE 40 MG VIAL IV STA (17:26)
[2020-08-18 18:19] LABS: Basophils # 0.1 10*3/uL (0.0-0.2); Basophils % 0.6 % (0.0-0.8); Eosinophils # 0.2 10*3/uL (0.0-0.87); Eosinophils % 1.6 % (0.00-10.9); Hematocrit 29.1 VOL% (35.7-47.0); Hemoglobin 9.5 GM/DL (12.0-16.0); Immature Granulocytes % 0.6 %; Immature Granulocytes Absolute 0.06 #; Lymphocytes # 0.6 10*3/uL (1.4-4.0); Lymphocytes % 6.7 % (21.3-54.2); Mean Corpuscular HGB Conc 32.6 GM/DL (32-36); Mean Corpuscular Volume 89.8 FL (87-102); Mean Platelet Volume 11.5 FL (9.6-12.0); Monocytes % 8.4 % (1.7-12.7); Neutrophils % 82.1 % (38.7-73.9); Platelet Count 141 T/CUMM (130-400); Red Blood Count 3.24 MC/CUMM (3.8-5.5); Red Cell Distribution Width 14.7 % (9.3-17.3); White Blood Count 9.6 T/CUMM (4-12)
[2020-08-18 18:20] LABS: Glucose,Urine (UA) Negative (Negative); Ketones,Urine Negative (Negative); Protein,Urine 30 MG/DL; Urine Appearance Slightly Cloudy (Clear); Urine Color Dark Orange (Yellow); Urine Specific Gravity 1.025 (1.001-1.035)
[2020-08-18 18:21] LABS: Bilirubin,Urine Negative (Negative); Blood, Urine Negative (Negative); Nitrite,Urine Negative (Negative); RBC,Urine Rare /HPF (0-4); WBC,Urine Occasional /HPF (0-6)
[2020-08-18 18:22] LABS: Bacteria,Urine Moderate /HPF (Few); Squamous Epithelial Cell,Urine Rare /HPF (0-10)
[2020-08-18 18:41] LABS: Alanine Aminotransferase 23 U/L (13-56); Albumin 3.5 G/DL (3.4-5.0); Alkaline Phosphatase 74 U/L (45-117); Aspartate Amino Transferase 28 U/L (0-37); Blood Urea Nitrogen 60 MG/DL (7-18); Calcium 7.8 MG/DL (8.5-10.1); Carbon Dioxide 17 MMOL/L (21-32); Estimated Glom Filtration Rate 7 ML/MIN; Glucose 96 MG/DL (74-106); Osmolality,Calculated 278.7 MOS/KG (273-304); Potassium 4.6 MMOL/L (3.5-5.1); Sodium 131 MMOL/L (136-145); Total Protein 6.7 G/DL (6.4-8.2)
[2020-08-18] MEDS ORDERED: GLUCAGON 1 MG VIAL IM PRN (20:50)
[2020-08-18] MEDS ORDERED: DEXTROSE 50% 25 GM/50 ML VIAL IV PRN ×2 (20:50)
[2020-08-18] MEDS ORDERED: SODIUM BICARB INJ 50 MEQ in SODIUM CHLORIDE 0.45% 1,000 ML IV SCH (21:00)
[2020-08-18] MEDS ORDERED: cefTRIAXone 1,000 MG in SYRINGE 1 EACH IV SCH (21:00)
[2020-08-18] MEDS: INSULIN REGULAR 100 UNIT/ML SUBCUT SCH (22:32)
[2020-08-19] MEDS: ONDANSETRON 4 MG/2 ML VIAL IV PRN ×2 (07:52→11:56)
[2020-08-19] MEDS: INSULIN REGULAR 100 UNIT/ML SUBCUT SCH ×4 (08:06→20:21)
[2020-08-19 08:39] LABS: Basophils # 0.1 10*3/uL (0.0-0.2); Basophils % 0.7 % (0.0-0.8); Eosinophils # 0.2 10*3/uL (0.0-0.87); Eosinophils % 2.3 % (0.00-10.9); Hematocrit 29.7 VOL% (35.7-47.0); Hemoglobin 9.5 GM/DL (12.0-16.0); Immature Granulocytes % 0.8 %; Immature Granulocytes Absolute 0.06 #; Lymphocytes # 0.6 10*3/uL (1.4-4.0); Lymphocytes % 7.4 % (21.3-54.2); Mean Corpuscular Volume 90.5 FL (87-102); Mean Platelet Volume 11.9 FL (9.6-12.0); Monocytes % 10.4 % (1.7-12.7); Neutrophils % 78.4 % (38.7-73.9); Platelet Count 144 T/CUMM (130-400); Red Blood Count 3.28 MC/CUMM (3.8-5.5); Red Cell Distribution Width 14.8 % (9.3-17.3); White Blood Count 7.7 T/CUMM (4-12)
[2020-08-19 08:57] LABS: Albumin 3.5 G/DL (3.4-5.0); Bilirubin,Total 1.5 MG/DL (0.2-1.0); Osmolality,Calculated 281.4 MOS/KG (273-304); Total Protein 6.7 G/DL (6.4-8.2)
[2020-08-19] MEDS: ENOXAPARIN 30 MG/0.3 ML SYRINGE SUBCUT SCH (09:00)
[2020-08-19 11:34] LABS: ABG HCO3 18.5 MMOL/L (20-26); ABG PCO2 37.2 MM HG (35-48); ABG PH 7.315 (7.35-7.45); ABG PO2 74.6 MM HG (80-95); ABG TCO2 19.7 MMOL/L (23-27)
[2020-08-19] MEDS: SODIUM CHLORIDE 23.4% CONC INJ 38.5 MEQ, SODIUM BICARB INJ 100 MEQ in STERILE WATER INJ... IV SCH (13:51)
[2020-08-20 01:43] LABS: Bacteria,Urine Occasional /HPF (Few); Bilirubin,Urine Negative (Negative); Blood, Urine Negative (Negative); Glucose,Urine (UA) Negative (Negative); Ketones,Urine Negative (Negative); Mucus,Urine Occasional /LPF (Occasional); Nitrite,Urine Positive (Negative); Protein,Urine 30 MG/DL; RBC,Urine <1 /HPF (0-4); Squamous Epithelial Cell,Urine Occasional /HPF (0-10); Urine Appearance CLEAR (Clear); Urine Color Amber (Yellow); Urine Specific Gravity 1.016 (1.001-1.035); WBC,Urine 1 /HPF (0-6)
[2020-08-20] MEDS: SODIUM CHLORIDE 23.4% CONC INJ 38.5 MEQ, SODIUM BICARB INJ 100 MEQ in STERILE WATER INJ... IV SCH ×2 (09:16→14:40)
[2020-08-20] MEDS: ENOXAPARIN 30 MG/0.3 ML SYRINGE SUBCUT SCH (09:17)
[2020-08-20] MEDS: ONDANSETRON 4 MG/2 ML VIAL IV PRN (09:31)
[2020-08-20 09:54] LABS: Osmolality,Calculated 279.8 MOS/KG (273-304); Potassium 4.7 MMOL/L (3.5-5.1)
[2020-08-20] MEDS: INSULIN REGULAR 100 UNIT/ML SUBCUT SCH ×4 (11:08→20:45)
[2020-08-20] MEDS: SODIUM CHLORIDE 0.9% 1,000 ML IV SCH (14:00)
[2020-08-21] MEDS: SODIUM CHLORIDE 0.9% 1,000 ML IV SCH (03:10)
[2020-08-21 05:55] LABS: Basophils # 0.1 10*3/uL (0.0-0.2); Basophils % 1.1 % (0.0-0.8); Eosinophils # 0.3 10*3/uL (0.0-0.87); Eosinophils % 3.7 % (0.00-10.9); Hematocrit 26.1 VOL% (35.7-47.0); Hemoglobin 8.4 GM/DL (12.0-16.0); Immature Granulocytes % 1.7 %; Immature Granulocytes Absolute 0.12 #; Lymphocytes # 0.5 10*3/uL (1.4-4.0); Lymphocytes % 6.9 % (21.3-54.2); Mean Corpuscular HGB Conc 32.2 GM/DL (32-36); Mean Corpuscular Volume 91.9 FL (87-102); Mean Platelet Volume 12.3 FL (9.6-12.0); Monocytes % 14.4 % (1.7-12.7); Neutrophils % 72.2 % (38.7-73.9); Platelet Count 122 T/CUMM (130-400); Red Blood Count 2.84 MC/CUMM (3.8-5.5); Red Cell Distribution Width 14.6 % (9.3-17.3); White Blood Count 7.2 T/CUMM (4-12)
[2020-08-21 06:04] LABS: Calcium 8.1 MG/DL (8.5-10.1); Osmolality,Calculated 282.8 MOS/KG (273-304); Potassium 4.7 MMOL/L (3.5-5.1)
[2020-08-21] MEDS: ENOXAPARIN 30 MG/0.3 ML SYRINGE SUBCUT SCH (09:37)
[2020-08-21] MEDS ORDERED: BUDESONIDE/FORMOTEROL 160-4.5 INHALER 6 GM INH PRN (09:58)
[2020-08-21] MEDS: ALBUTEROL 2.5 MG/3 ML NEB RESP TX PRN ×2 (11:34→19:33)
[2020-08-21] MEDS: INSULIN REGULAR 100 UNIT/ML SUBCUT SCH ×4 (13:42→21:32)
[2020-08-21] MEDS: SEVELAMER CARBONATE 800 MG TABLET PO SCH (18:08)
[2020-08-21] MEDS: SODIUM BICARBONATE 650 MG TABLET PO SCH (21:32)
[2020-08-21] MEDS ORDERED: NITROGLYCERIN SL 0.4 MG TABLET SL ONE ×2 (22:35→22:36)
[2020-08-21] MEDS ORDERED: MORPHINE 4 MG/1 ML VIAL ONE (22:42)
[2020-08-21] MEDS ORDERED: MORPHINE 4 MG/1 ML VIAL IV ONE (22:43)
[2020-08-21 23:01] LABS: ABG Base Excess -6.8 MMOL/L (-2.5-2.5); ABG HCO3 18.8 MMOL/L (20-26); ABG Oxygen Saturation 99.7 % (95-100); ABG PCO2 42.2 MM HG (35-48); ABG PH 7.276 (7.35-7.45); ABG TCO2 18.3 MMOL/L (23-27)
[2020-08-21 23:10] LABS: Calcium 8.2 MG/DL (8.5-10.1); Osmolality,Calculated 288.4 MOS/KG (273-304); Potassium 4.9 MMOL/L (3.5-5.1)
[2020-08-21] MEDS ORDERED: FUROSEMIDE 40 MG/4 ML VIAL ONE (23:21)
[2020-08-21] MEDS ORDERED: FUROSEMIDE 40 MG/4 ML VIAL IV ONE (23:23)
[2020-08-21] MEDS ORDERED: MORPHINE 4 MG/1 ML VIAL IV PRN (23:25)
[2020-08-22] MEDS: ALBUTEROL/IPRATROPIUM 3 ML NEB RESP TX SCH ×4 (00:30→20:06)
[2020-08-22 02:43] LABS: Basophils % 0.3 % (0.0-0.8); Eosinophils % 0.1 % (0.00-10.9); Hematocrit 26.4 VOL% (35.7-47.0); Hemoglobin 8.7 GM/DL (12.0-16.0); Immature Granulocytes % 0.5 %; Immature Granulocytes Absolute 0.05 #; Lymphocytes # 0.5 10*3/uL (1.4-4.0); Lymphocytes % 4.6 % (21.3-54.2); Mean Corpuscular Volume 89.2 FL (87-102); Mean Platelet Volume 11.2 FL (9.6-12.0); Monocytes % 10.5 % (1.7-12.7); Platelet Count 128 T/CUMM (130-400); Red Blood Count 2.96 MC/CUMM (3.8-5.5); Red Cell Distribution Width 14.6 % (9.3-17.3)
[2020-08-22 02:47] LABS: Calcium 8.6 MG/DL (8.5-10.1); Osmolality,Calculated 286.5 MOS/KG (273-304); Potassium 4.9 MMOL/L (3.5-5.1)
[2020-08-22 04:03] LABS: Lymphocytes 3 % (20-55); Segmented Neutrophils 87 % (50-85); Total Cells Counted 100
[2020-08-22 04:04] LABS: Hypochromasia 1+; Microcytosis 1+; Platelet Estimate Normal
[2020-08-22] MEDS: INSULIN REGULAR 100 UNIT/ML SUBCUT SCH ×4 (08:01→20:41)
[2020-08-22] MEDS: SEVELAMER CARBONATE 800 MG TABLET PO SCH ×3 (08:02→16:50)
[2020-08-22] MEDS: SODIUM BICARBONATE 650 MG TABLET PO SCH ×2 (08:02→20:40)
[2020-08-22] MEDS: ENOXAPARIN 30 MG/0.3 ML SYRINGE SUBCUT SCH (09:10)
[2020-08-22] MEDS: SODIUM CHLORIDE 0.9% 1,000 ML IV SCH (09:21)
[2020-08-22] MEDS ORDERED: FUROSEMIDE INJ 200 MG in SODIUM CHLORIDE 0.9% 50 ML IV ONE (09:30)
[2020-08-22] MEDS: ALBUTEROL 2.5 MG/3 ML NEB RESP TX PRN (11:17)
[2020-08-22] MEDS: PANTOPRAZOLE 40 MG TABLET PO SCH (11:57)
[2020-08-22] MEDS ORDERED: POLYETHYLENE GLYCOL POWDER 17 GM PACK PO PRN (15:45)
[2020-08-22] MEDS ORDERED: ceFAZolin 1,000 MG in SYRINGE 1 EACH IV ONE (16:47)
[2020-08-22 20:16] LABS: Total Protein 24 Hr Ur Result 990 MG/24HR (0-149.1); Total Volume,Urine 3300 ML (400-2000)
[2020-08-22 20:21] LABS: Creatinine Clearance Urine 17.86 ML/MIN (70-115)
[2020-08-23 04:54] LABS: Basophils % 0.6 % (0.0-0.8); Eosinophils # 0.2 10*3/uL (0.0-0.87); Eosinophils % 2.9 % (0.00-10.9); Immature Granulocytes % 0.4 %; Immature Granulocytes Absolute 0.03 #; Lymphocytes # 0.6 10*3/uL (1.4-4.0); Lymphocytes % 8.8 % (21.3-54.2); Mean Corpuscular HGB Conc 33.3 GM/DL (32-36); Mean Corpuscular Volume 86.6 FL (87-102); Mean Platelet Volume 11.5 FL (9.6-12.0); Monocytes % 12.1 % (1.7-12.7); Neutrophils % 75.2 % (38.7-73.9); Platelet Count 112 T/CUMM (130-400); Red Blood Count 2.77 MC/CUMM (3.8-5.5); Red Cell Distribution Width 14.9 % (9.3-17.3)
[2020-08-23 05:20] LABS: Hypochromasia 1+; Microcytosis 1+
[2020-08-23 05:21] LABS: Ovalocytes Slight; Platelet Estimate Adequate
[2020-08-23 05:28] LABS: Calcium 8.6 MG/DL (8.5-10.1); Osmolality,Calculated 295.7 MOS/KG (273-304); Potassium 4.5 MMOL/L (3.5-5.1)
[2020-08-23] MEDS ORDERED: ceFAZolin 1,000 MG in SYRINGE 1 EACH IV ONE (06:30)
[2020-08-23] MEDS: ALBUTEROL/IPRATROPIUM 3 ML NEB RESP TX SCH ×4 (06:55→20:07)
[2020-08-23] MEDS: INSULIN REGULAR 100 UNIT/ML SUBCUT SCH ×4 (08:12→20:21)
[2020-08-23] MEDS: SEVELAMER CARBONATE 800 MG TABLET PO SCH ×3 (08:13→16:47)
[2020-08-23] MEDS ORDERED: LIDOCAINE 1%/EPI INJ 20 ML VIAL ONE (09:32)
[2020-08-23] MEDS ORDERED: HEPARIN 5,000 UNIT/1 ML VIAL ONE (09:32)
[2020-08-23] MEDS ORDERED: BUPIVACAINE MPF 0.25% 30 ML VIAL ONE (09:32)
[2020-08-23] MEDS ORDERED: MIDAZOLAM 2 MG/2 ML VIAL ONE (09:57)
[2020-08-23] MEDS: SODIUM BICARBONATE 650 MG TABLET PO SCH ×2 (12:00→20:20)
[2020-08-23] MEDS: PANTOPRAZOLE 40 MG TABLET PO SCH (12:29)
[2020-08-23] MEDS ORDERED: HEPARIN 10,000 UNIT/10 ML VIAL IV SCH (17:00)
[2020-08-23 18:35] LABS: Hepatitis B Core IgM Quant 0.06 Index; Hepatitis B Surface Ag Quant < 0.10 Index; Hepatitis B Surface Ag Result Non-Reactive (NonReactive); Hepatitis C Virus Ab Result Non-Reactive (NonReactive)
[2020-08-24] MEDS: ALBUTEROL/IPRATROPIUM 3 ML NEB RESP TX SCH ×4 (00:05→19:32)
[2020-08-24 06:17] LABS: Basophils # 0.1 10*3/uL (0.0-0.2); Basophils % 0.8 % (0.0-0.8); Eosinophils # 0.8 10*3/uL (0.0-0.87); Eosinophils % 13.4 % (0.00-10.9); Hematocrit 24.1 VOL% (35.7-47.0); Hemoglobin 7.9 GM/DL (12.0-16.0); Immature Granulocytes % 0.5 %; Immature Granulocytes Absolute 0.03 #; Lymphocytes # 0.8 10*3/uL (1.4-4.0); Lymphocytes % 12.9 % (21.3-54.2); Mean Corpuscular HGB Conc 32.8 GM/DL (32-36); Mean Corpuscular Volume 89.9 FL (87-102); Mean Platelet Volume 10.6 FL (9.6-12.0); Monocytes % 11.9 % (1.7-12.7); Neutrophils % 60.5 % (38.7-73.9); Platelet Count 128 T/CUMM (130-400); Red Blood Count 2.68 MC/CUMM (3.8-5.5); Red Cell Distribution Width 14.9 % (9.3-17.3); White Blood Count 5.9 T/CUMM (4-12)
[2020-08-24 06:41] LABS: Calcium 8.6 MG/DL (8.5-10.1); Osmolality,Calculated 285.7 MOS/KG (273-304); Potassium 4.6 MMOL/L (3.5-5.1)
[2020-08-24 06:44] LABS: Anisocytosis 1+; Band Neutrophils 1 % (0-10); Eosinophils 15 % (0-10); Lymphocytes 11 % (20-55); Platelet Estimate Adequate; Segmented Neutrophils 60 % (50-85); Smudge Cells Few; Total Cells Counted 100
[2020-08-24 06:45] LABS: Burr Cells Few; Tear Drop Cells Few
[2020-08-24] MEDS: INSULIN REGULAR 100 UNIT/ML SUBCUT SCH ×4 (07:31→22:05)
[2020-08-24] MEDS: SEVELAMER CARBONATE 800 MG TABLET PO SCH ×3 (08:18→16:26)
[2020-08-24] MEDS: PANTOPRAZOLE 40 MG TABLET PO SCH (08:19)
[2020-08-24] MEDS: SODIUM BICARBONATE 650 MG TABLET PO SCH ×2 (08:19→22:05)
[2020-08-24] MEDS: ATORVASTATIN 80 MG TABLET PO SCH (22:05)
[2020-08-25] MEDS: ALBUTEROL/IPRATROPIUM 3 ML NEB RESP TX SCH ×4 (01:40→19:33)
[2020-08-25 04:58] LABS: Basophils % 0.4 % (0.0-0.8); Eosinophils # 0.8 10*3/uL (0.0-0.87); Eosinophils % 10.6 % (0.00-10.9); Hematocrit 24.4 VOL% (35.7-47.0); Hemoglobin 7.9 GM/DL (12.0-16.0); Immature Granulocytes % 0.4 %; Immature Granulocytes Absolute 0.03 #; Lymphocytes # 0.8 10*3/uL (1.4-4.0); Lymphocytes % 10.2 % (21.3-54.2); Mean Corpuscular HGB Conc 32.4 GM/DL (32-36); Mean Platelet Volume 10.7 FL (9.6-12.0); Monocytes % 11.2 % (1.7-12.7); Neutrophils % 67.2 % (38.7-73.9); Platelet Count 135 T/CUMM (130-400); Red Blood Count 2.71 MC/CUMM (3.8-5.5); Red Cell Distribution Width 14.7 % (9.3-17.3); White Blood Count 7.3 T/CUMM (4-12)
[2020-08-25 05:26] LABS: Calcium 8.6 MG/DL (8.5-10.1); Osmolality,Calculated 274.1 MOS/KG (273-304); Potassium 4.4 MMOL/L (3.5-5.1)
[2020-08-25] MEDS: LEVOTHYROXINE 50 MCG TABLET PO SCH (05:54)
[2020-08-25] MEDS: INSULIN REGULAR 100 UNIT/ML SUBCUT SCH ×4 (07:13→21:27)
[2020-08-25] MEDS: SEVELAMER CARBONATE 800 MG TABLET PO SCH ×3 (09:11→16:24)
[2020-08-25] MEDS: SODIUM BICARBONATE 650 MG TABLET PO SCH ×2 (11:31→21:27)
[2020-08-25] MEDS: PANTOPRAZOLE 40 MG TABLET PO SCH (11:31)
[2020-08-25] MEDS: ATORVASTATIN 80 MG TABLET PO SCH (21:27)
[2020-08-26] MEDS: ALBUTEROL/IPRATROPIUM 3 ML NEB RESP TX SCH ×4 (01:08→20:06)
[2020-08-26] MEDS: LEVOTHYROXINE 50 MCG TABLET PO SCH (05:39)
[2020-08-26 05:47] LABS: Basophils % 0.7 % (0.0-0.8); Eosinophils # 0.8 10*3/uL (0.0-0.87); Eosinophils % 13.9 % (0.00-10.9); Hematocrit 26.6 VOL% (35.7-47.0); Hemoglobin 8.8 GM/DL (12.0-16.0); Immature Granulocytes % 0.6 %; Immature Granulocytes Absolute 0.03 #; Lymphocytes # 0.9 10*3/uL (1.4-4.0); Lymphocytes % 16.5 % (21.3-54.2); Mean Corpuscular HGB Conc 33.1 GM/DL (32-36); Mean Platelet Volume 10.8 FL (9.6-12.0); Monocytes % 14.1 % (1.7-12.7); Neutrophils % 54.2 % (38.7-73.9); Platelet Count 147 T/CUMM (130-400); Red Blood Count 2.99 MC/CUMM (3.8-5.5); Red Cell Distribution Width 14.3 % (9.3-17.3); White Blood Count 5.4 T/CUMM (4-12)
[2020-08-26 06:13] LABS: Calcium 8.6 MG/DL (8.5-10.1); Osmolality,Calculated 280.4 MOS/KG (273-304); Potassium 3.6 MMOL/L (3.5-5.1)
[2020-08-26 06:15] LABS: Eosinophils 21 % (0-10); Hypochromasia 1+; Lymphocytes 16 % (20-55); Platelet Estimate Normal; Segmented Neutrophils 57 % (50-85); Total Cells Counted 100
[2020-08-26] MEDS: PANTOPRAZOLE 40 MG TABLET PO SCH (08:00)
[2020-08-26] MEDS: SEVELAMER CARBONATE 800 MG TABLET PO SCH ×3 (08:00→16:14)
[2020-08-26] MEDS: SODIUM BICARBONATE 650 MG TABLET PO SCH ×2 (08:00→21:08)
[2020-08-26] MEDS: INSULIN REGULAR 100 UNIT/ML SUBCUT SCH ×4 (08:01→21:08)
[2020-08-26] MEDS ORDERED: hydrALAZINE 20 MG/1 ML VIAL IM PRN (15:09)
[2020-08-26] MEDS ORDERED: hydrALAZINE 20 MG/1 ML VIAL IV PRN (15:17)
[2020-08-26] MEDS: carvediloL 25 MG TABLET PO SCH (21:08)
[2020-08-26] MEDS: ATORVASTATIN 80 MG TABLET PO SCH (21:08)
[2020-08-27] MEDS: ALBUTEROL/IPRATROPIUM 3 ML NEB RESP TX SCH ×6 (00:12→19:31)
[2020-08-27 05:08] LABS: Basophils # 0.1 10*3/uL (0.0-0.2); Eosinophils # 0.8 10*3/uL (0.0-0.87); Eosinophils % 13.8 % (0.00-10.9); Hemoglobin 8.2 GM/DL (12.0-16.0); Immature Granulocytes % 0.5 %; Immature Granulocytes Absolute 0.03 #; Lymphocytes # 0.9 10*3/uL (1.4-4.0); Lymphocytes % 14.7 % (21.3-54.2); Mean Corpuscular HGB Conc 31.5 GM/DL (32-36); Mean Corpuscular Volume 91.9 FL (87-102); Mean Platelet Volume 10.1 FL (9.6-12.0); Monocytes % 12.6 % (1.7-12.7); Neutrophils % 57.4 % (38.7-73.9); Platelet Count 153 T/CUMM (130-400); Red Blood Count 2.83 MC/CUMM (3.8-5.5); Red Cell Distribution Width 14.4 % (9.3-17.3); White Blood Count 5.8 T/CUMM (4-12)
[2020-08-27 05:32] LABS: Osmolality,Calculated 279.7 MOS/KG (273-304)
[2020-08-27 05:34] LABS: Eosinophils 23 % (0-10); Hypochromasia 1+; Lymphocytes 18 % (20-55); Microcytosis 1+; Platelet Estimate Adequate; Segmented Neutrophils 49 % (50-85); Total Cells Counted 100
[2020-08-27 05:43] LABS: Calcium 8.7 MG/DL (8.5-10.1); Osmolality,Calculated 281.5 MOS/KG (273-304)
[2020-08-27] MEDS: LEVOTHYROXINE 50 MCG TABLET PO SCH (05:53)
[2020-08-27] MEDS: INSULIN REGULAR 100 UNIT/ML SUBCUT SCH ×4 (07:40→21:09)
[2020-08-27] MEDS: SEVELAMER CARBONATE 800 MG TABLET PO SCH ×3 (08:13→17:05)
[2020-08-27] MEDS: carvediloL 25 MG TABLET PO SCH ×2 (08:14→20:02)
[2020-08-27] MEDS: SODIUM BICARBONATE 650 MG TABLET PO SCH ×2 (08:14→20:02)
[2020-08-27] MEDS: PANTOPRAZOLE 40 MG TABLET PO SCH (08:14)
[2020-08-27] MEDS: ATORVASTATIN 80 MG TABLET PO SCH (20:02)
[2020-08-28] MEDS: ALBUTEROL/IPRATROPIUM 3 ML NEB RESP TX SCH ×2 (00:19→07:20)
[2020-08-28] MEDS: LEVOTHYROXINE 50 MCG TABLET PO SCH (05:55)
[2020-08-28 05:59] LABS: Calcium 9.2 MG/DL (8.5-10.1); Osmolality,Calculated 269.4 MOS/KG (273-304); Potassium 3.9 MMOL/L (3.5-5.1)
[2020-08-28] MEDS: SEVELAMER CARBONATE 800 MG TABLET PO SCH ×2 (08:28→12:50)
[2020-08-28] MEDS: PANTOPRAZOLE 40 MG TABLET PO SCH (08:28)
[2020-08-28] MEDS: carvediloL 25 MG TABLET PO SCH (08:28)
[2020-08-28] MEDS: SODIUM BICARBONATE 650 MG TABLET PO SCH (08:29)
[2020-08-28] MEDS: INSULIN REGULAR 100 UNIT/ML SUBCUT SCH ×2 (08:29→12:50)
[2020-08-28 12:18] VITALS: BP 117/47
== END 2020-08-28 14:53 | disposition home health service (06) | DRG 673 ==
LOC: N.ED 16:27 → N.EDINP 20:50 → SUATTDRO 20:50 → N.EDINP 21:28 → N.4E 21:35 → N.ICU 08-21 23:10 → N.5E 08-23 17:52
PROVIDERS: ADMIT Internal Medicine; ATTEND Internal Medicine

== ENCOUNTER 2020-12-31 15:50 | Inpatient (IN) ==
[2020-12-31] MEDS ORDERED: FUROSEMIDE 100 MG/10 ML VIAL IV STA (23:04)
[2020-12-31] MEDS ORDERED: ALBUTEROL/IPRATROPIUM 3 ML NEB RESP TX STA (23:04)
[2020-12-31] MEDS ORDERED: ONDANSETRON 4 MG/2 ML VIAL IV STA (23:04)
[2020-12-31] MEDS ORDERED: MORPHINE 2 MG/1 ML SYRINGE IV STA (23:04)
[2020-12-31 23:35] LABS: ABG HCO3 25.4 MMOL/L (20-26); ABG Oxygen Saturation 97.8 % (95-100); ABG PCO2 39.3 MM HG (35-48); ABG PO2 97.9 MM HG (80-95); ABG TCO2 23.3 MMOL/L (23-27)
[2021-01-01 00:10] LABS: Basophils % 0.5 % (0.0-0.8); Eosinophils # 0.1 10*3/uL (0.0-0.87); Eosinophils % 1.6 % (0.00-10.9); Hematocrit 34.1 VOL% (35.7-47.0); Hemoglobin 11.2 GM/DL (12.0-16.0); Immature Granulocytes % 0.8 %; Immature Granulocytes Absolute 0.06 #; Lymphocytes # 0.7 10*3/uL (1.4-4.0); Lymphocytes % 9.8 % (21.3-54.2); Mean Corpuscular HGB Conc 32.8 GM/DL (32-36); Mean Corpuscular Volume 91.7 FL (87-102); Mean Platelet Volume 11.9 FL (9.6-12.0); Monocytes % 7.2 % (1.7-12.7); Neutrophils % 80.1 % (38.7-73.9); Platelet Count 123 T/CUMM (130-400); Red Blood Count 3.72 MC/CUMM (3.8-5.5); Red Cell Distribution Width 13.9 % (9.3-17.3); White Blood Count 7.5 T/CUMM (4-12)
[2021-01-01 00:13] LABS: Bacteria,Urine Occasional /HPF (Few); Bilirubin,Urine Negative (Negative); Blood, Urine Negative (Negative); Glucose,Urine (UA) >=500 mg/dL (Negative); Ketones,Urine Negative (Negative); Mucus,Urine Occasional /LPF (Occasional); Nitrite,Urine Negative (Negative); Protein,Urine >=500 MG/DL; RBC,Urine 1 /HPF (0-4); Squamous Epithelial Cell,Urine Occasional /HPF (0-10); Urine Appearance CLEAR (Clear); Urine Color Yellow (Yellow); Urine Specific Gravity 1.012 (1.001-1.035); Urine Urobilinogen < 2.0 EU/DL (0.2-1.0)
[2021-01-01 00:20] LABS: INR 1.1; PT Patient Result 11.9 SECS (10.5-12.0)
[2021-01-01 00:28] LABS: Bilirubin,Total 1.3 MG/DL (0.20-1.00); Calcium 8.2 MG/DL (8.5-10.1); Potassium 4.1 MMOL/L (3.5-5.1); Total Protein 6.5 G/DL (6.4-8.2)
[2021-01-01] MEDS ORDERED: INSULIN REGULAR 100 UNIT/ML SUBCUT STA (00:57)
[2021-01-01] MEDS ORDERED: GLUCAGON 1 MG VIAL IM PRN (02:12)
[2021-01-01] MEDS ORDERED: DEXTROSE 50% 25 GM/50 ML VIAL IV PRN (02:12)
[2021-01-01] MEDS ORDERED: MAGNESIUM SULF RIDER 2 GM/50 ML PREMIX IV PRN (02:19)
[2021-01-01] MEDS ORDERED: ONDANSETRON 4 MG/2 ML VIAL IV PRN (02:19)
[2021-01-01] MEDS ORDERED: ACETAMINOPHEN 325 MG TABLET PO PRN (02:19)
[2021-01-01] MEDS ORDERED: MORPHINE 2 MG/1 ML SYRINGE IV PRN (02:19)
[2021-01-01] MEDS ORDERED: MAGNESIUM SULF RIDER 4 GM/100 ML PREMIX IV PRN (02:19)
[2021-01-01] MEDS ORDERED: ENOXAPARIN 30 MG/0.3 ML SYRINGE SUBCUT SCH (02:30)
[2021-01-01] MEDS: ALBUTEROL/IPRATROPIUM 3 ML NEB RESP TX SCH ×3 (07:17→19:20)
[2021-01-01] MEDS: carvediloL 25 MG TABLET PO SCH ×2 (09:13→21:25)
[2021-01-01] MEDS: ASPIRIN EC 81 MG TABLET PO SCH (09:13)
[2021-01-01] MEDS: INSULIN REGULAR 100 UNIT/ML SUBCUT SCH ×4 (09:13→22:26)
[2021-01-01] MEDS: PANTOPRAZOLE 40 MG TABLET PO SCH (09:13)
[2021-01-01] MEDS: FUROSEMIDE 40 MG/4 ML VIAL IV SCH ×2 (09:18→16:35)
[2021-01-01] MEDS: ATORVASTATIN 80 MG TABLET PO SCH (21:25)
[2021-01-02] MEDS: ALBUTEROL/IPRATROPIUM 3 ML NEB RESP TX SCH ×4 (00:50→19:40)
[2021-01-02 07:21] LABS: Basophils # 0.1 10*3/uL (0.0-0.2); Eosinophils # 0.7 10*3/uL (0.0-0.87); Eosinophils % 13.4 % (0.00-10.9); Hematocrit 27.9 VOL% (35.7-47.0); Immature Granulocytes % 0.2 %; Immature Granulocytes Absolute 0.01 #; Lymphocytes % 20.8 % (21.3-54.2); Mean Corpuscular Volume 92.1 FL (87-102); Mean Platelet Volume 11.7 FL (9.6-12.0); Monocytes % 9.4 % (1.7-12.7); Neutrophils % 55.2 % (38.7-73.9); Red Blood Count 3.03 MC/CUMM (3.8-5.5); Red Cell Distribution Width 13.8 % (9.3-17.3)
[2021-01-02 07:22] LABS: Hemoglobin 9.2 GM/DL (12.0-16.0); Platelet Count 169 T/CUMM (130-400); White Blood Count 4.9 T/CUMM (4-12)
[2021-01-02 07:36] LABS: Eosinophils 9 % (0-10); Lymphocytes 20 % (20-55); Nucleated Red Blood Cells 1 (0-5); Segmented Neutrophils 62 % (50-85); Total Cells Counted 100
[2021-01-02 07:37] LABS: Hypochromasia Slight; Microcytosis 1+; Ovalocytes Slight; Platelet Estimate Adequate
[2021-01-02 07:48] LABS: Albumin 2.7 G/DL (3.4-5.0); Bilirubin,Total 1.2 MG/DL (0.20-1.00); Calcium 8.9 MG/DL (8.5-10.1); Osmolality,Calculated 290.5 MOS/KG (273-304); Potassium 3.9 MMOL/L (3.5-5.1); Total Protein 6.7 G/DL (6.4-8.2)
[2021-01-02] MEDS: FUROSEMIDE 40 MG/4 ML VIAL IV SCH ×2 (09:03→17:06)
[2021-01-02] MEDS: INSULIN REGULAR 100 UNIT/ML SUBCUT SCH ×4 (09:04→22:00)
[2021-01-02] MEDS: PANTOPRAZOLE 40 MG TABLET PO SCH (09:04)
[2021-01-02] MEDS: carvediloL 25 MG TABLET PO SCH ×2 (09:04→21:10)
[2021-01-02] MEDS: ASPIRIN EC 81 MG TABLET PO SCH (09:04)
[2021-01-02] MEDS ORDERED: BUDESONIDE/FORMOTEROL 160-4.5 INHALER 6 GM INH PRN (13:30)
[2021-01-02] MEDS: SEVELAMER CARBONATE 800 MG TABLET PO SCH (17:21)
[2021-01-02] MEDS ORDERED: MONTELUKAST 10 MG TABLET PO SCH (21:00)
[2021-01-02] MEDS: SODIUM BICARBONATE 650 MG TABLET PO SCH (21:10)
[2021-01-02] MEDS: ATORVASTATIN 80 MG TABLET PO SCH (21:11)
[2021-01-03] MEDS: ALBUTEROL/IPRATROPIUM 3 ML NEB RESP TX SCH ×2 (00:20→07:52)
[2021-01-03 04:38] LABS: Basophils # 0.1 10*3/uL (0.0-0.2); Eosinophils # 0.8 10*3/uL (0.0-0.87); Eosinophils % 12.9 % (0.00-10.9); Hematocrit 28.7 VOL% (35.7-47.0); Hemoglobin 9.6 GM/DL (12.0-16.0); Immature Granulocytes % 0.3 %; Immature Granulocytes Absolute 0.02 #; Lymphocytes # 1.3 10*3/uL (1.4-4.0); Mean Corpuscular HGB Conc 33.4 GM/DL (32-36); Mean Corpuscular Volume 90.8 FL (87-102); Mean Platelet Volume 11.1 FL (9.6-12.0); Monocytes % 9.8 % (1.7-12.7); Platelet Count 193 T/CUMM (130-400); Red Blood Count 3.16 MC/CUMM (3.8-5.5); Red Cell Distribution Width 13.3 % (9.3-17.3)
[2021-01-03 05:06] LABS: Calcium 8.9 MG/DL (8.5-10.1); Osmolality,Calculated 293.5 MOS/KG (273-304); Potassium 3.9 MMOL/L (3.5-5.1)
[2021-01-03 05:13] LABS: Eosinophils 7 % (0-10); Hypochromasia 1+; Lymphocytes 20 % (20-55); Microcytosis 1+; Platelet Estimate Adequate; Segmented Neutrophils 68 % (50-85); Total Cells Counted 100
[2021-01-03] MEDS ORDERED: LEVOTHYROXINE 50 MCG TABLET PO SCH (09:00)
[2021-01-03] MEDS ORDERED: ESCITALOPRAM 10 MG TABLET PO SCH (09:00)
[2021-01-03] MEDS: INSULIN REGULAR 100 UNIT/ML SUBCUT SCH ×2 (09:52→12:14)
[2021-01-03] MEDS: FUROSEMIDE 40 MG/4 ML VIAL IV SCH (09:52)
[2021-01-03] MEDS: ASPIRIN EC 81 MG TABLET PO SCH (09:53)
[2021-01-03] MEDS: PANTOPRAZOLE 40 MG TABLET PO SCH (09:54)
[2021-01-03] MEDS: carvediloL 25 MG TABLET PO SCH (09:54)
[2021-01-03] MEDS: SEVELAMER CARBONATE 800 MG TABLET PO SCH ×2 (09:54→12:04)
[2021-01-03] MEDS: SODIUM BICARBONATE 650 MG TABLET PO SCH (12:19)
[2021-01-03 12:22] VITALS: BP 152/61
== END 2021-01-03 15:46 | disposition home health service (06) | DRG 291 ==
LOC: N.ED 15:50 → N.EDINP 01-01 02:12 → N.TELES 01-01 05:51
PROVIDERS: ADMIT Internal Medicine; ATTEND Internal Medicine

== ENCOUNTER 2022-01-24 10:44 | Inpatient (IN) ==
[2022-01-24 11:11] LABS: Basophils # 0.1 10*3/uL (0.0-0.2); Basophils % 1.1 % (0.0-0.8); Eosinophils # 0.8 10*3/uL (0.0-0.87); Eosinophils % 8.2 % (0.00-10.9); Hematocrit 34.8 VOL% (35.7-47.0); Hemoglobin 11.1 GM/DL (12.0-16.0); Immature Granulocytes % 0.7 %; Immature Granulocytes Absolute 0.07 #; Lymphocytes # 1.5 10*3/uL (1.4-4.0); Lymphocytes % 14.7 % (21.3-54.2); Mean Corpuscular HGB Conc 31.9 GM/DL (32-36); Mean Corpuscular Volume 90.6 FL (87-102); Mean Platelet Volume 10.9 FL (9.6-12.0); Monocytes # 0.9 10*3/uL (0.11-0.8); Monocytes % 9.2 % (1.7-12.7); Neutrophils % 66.1 % (38.7-73.9); Platelet Count 176 T/CUMM (130-400); Red Blood Count 3.84 MC/CUMM (3.8-5.5); Red Cell Distribution Width 16.5 % (9.3-17.3); White Blood Count 9.9 T/CUMM (4-12)
[2022-01-24 11:18] LABS: INR 1.1; Partial Thromboplastin Time 30.2 SECS (23.7-32.9)
[2022-01-24 11:34] LABS: Albumin 3.5 G/DL (3.4-5.0); Bilirubin,Total 0.8 MG/DL (0.20-1.00); Calcium 8.9 MG/DL (8.5-10.1); Osmolality,Calculated 291.4 MOS/KG (273-304); Potassium 4.4 MMOL/L (3.5-5.1); Total Protein 7.3 G/DL (6.4-8.2)
[2022-01-24] MEDS ORDERED: ACETAMINOPHEN 325 MG TABLET PO ONE (14:09)
[2022-01-24] MEDS ORDERED: methylPREDNISolone SOD SUC 125 MG/2 ML VIAL IV STA (14:09)
[2022-01-24] MEDS ORDERED: ASPIRIN 325 MG TABLET PO STA (14:09)
[2022-01-24] MEDS ORDERED: ALBUTEROL 2.5 MG/3 ML NEB RESP TX STA (14:09)
[2022-01-24] MEDS ORDERED: ONDANSETRON 4 MG/2 ML VIAL IV ONE (14:09)
[2022-01-24] MEDS ORDERED: ALBUTEROL/IPRATROPIUM 3 ML NEB RESP TX STA (14:09)
[2022-01-24] MEDS ORDERED: FUROSEMIDE 40 MG/4 ML VIAL IV STA (14:10)
[2022-01-24 14:25] LABS: Arterial Base Excess iSTAT -5 MMOL/L (-2.5-2.5); Arterial Bicarbonate iSTAT 19.7 MMOL/L (20-26); Arterial O2 Saturation iSTAT 99 % (95-100); Arterial PCO2 iSTAT 36 MM HG (35-48); Arterial PO2 iSTAT 136 MM HG (80-95); Arterial Total CO2 iSTAT 21 MMO/L (23-27); Arterial pH iSTAT 7.342 (7.35-7.45)
[2022-01-24] MEDS ORDERED: cefTRIAXone 1,000 MG in SODIUM CHLORIDE 0.9% 100 ML IV STA (14:57)
[2022-01-24] MEDS ORDERED: AZITHROMYCIN INJ 500 MG in SODIUM CHLORIDE 0.9% 250 ML IV STA (14:57)
[2022-01-24] MEDS ORDERED: BUDESONIDE/FORMOTEROL 160-4.5 INHALER 6 GM INH PRN (16:15)
[2022-01-24] MEDS ORDERED: GLUCAGON 1 MG VIAL IM PRN ×2 (16:20→16:23)
[2022-01-24] MEDS ORDERED: MAGNESIUM SULF RIDER 2 GM/50 ML PREMIX IV PRN (16:20)
[2022-01-24] MEDS ORDERED: DEXTROSE 10% 250 ML BAG IV PRN (16:20)
[2022-01-24] MEDS ORDERED: MAGNESIUM SULF RIDER 4 GM/100 ML PREMIX IV PRN (16:20)
[2022-01-24] MEDS ORDERED: ACETAMINOPHEN 325 MG TABLET PO PRN (16:23)
[2022-01-24] MEDS ORDERED: hydrALAZINE 20 MG/1 ML VIAL IV PRN (16:23)
[2022-01-24] MEDS ORDERED: DOCUSATE SODIUM 100 MG CAPSULE PO PRN (16:23)
[2022-01-24] MEDS ORDERED: DEXTROSE 50% 25 GM/50 ML VIAL IV PRN (16:23)
[2022-01-24] MEDS ORDERED: ONDANSETRON 4 MG/2 ML VIAL IV PRN (16:23)
[2022-01-24] MEDS ORDERED: ALBUTEROL/IPRATROPIUM 3 ML NEB RESP TX PRN (16:23)
[2022-01-24] MEDS ORDERED: SIMETHICONE CHEW 125 MG TABLET PO PRN (16:23)
[2022-01-24] MEDS: INSULIN REGULAR 100 UNIT/ML SUBCUT SCH ×2 (18:03→21:28)
[2022-01-24] MEDS: SEVELAMER CARBONATE 800 MG TABLET PO SCH (18:41)
[2022-01-24] MEDS ORDERED: SODIUM BICARBONATE 650 MG TABLET PO SCH (21:00)
[2022-01-24] MEDS ORDERED: ENOXAPARIN 30 MG/0.3 ML SYRINGE SUBCUT SCH (21:00)
[2022-01-24] MEDS: MONTELUKAST 10 MG TABLET PO SCH (21:26)
[2022-01-24] MEDS: ATORVASTATIN 80 MG TABLET PO SCH (21:26)
[2022-01-24] MEDS: SODIUM BICARBONATE 650 MG TABLET PO SCH (21:27)
[2022-01-24] MEDS: carvediloL 25 MG TABLET PO SCH (21:27)
[2022-01-25 04:46] LABS: Basophils % 0.2 % (0.0-0.8); Hematocrit 32.5 VOL% (35.7-47.0); Hemoglobin 10.2 GM/DL (12.0-16.0); Immature Granulocytes % 0.7 %; Immature Granulocytes Absolute 0.04 #; Lymphocytes # 0.5 10*3/uL (1.4-4.0); Lymphocytes % 9.5 % (21.3-54.2); Mean Corpuscular HGB Conc 31.4 GM/DL (32-36); Mean Corpuscular Volume 90.8 FL (87-102); Monocytes # 0.1 10*3/uL (0.11-0.8); Monocytes % 0.9 % (1.7-12.7); Neutrophils % 88.7 % (38.7-73.9); Platelet Count 143 T/CUMM (130-400); Red Blood Count 3.58 MC/CUMM (3.8-5.5); Red Cell Distribution Width 16.3 % (9.3-17.3); White Blood Count 5.7 T/CUMM (4-12)
[2022-01-25 05:06] LABS: Albumin 3.1 G/DL (3.4-5.0); Bilirubin,Total 0.7 MG/DL (0.20-1.00); Osmolality,Calculated 287.8 MOS/KG (273-304); Potassium 4.5 MMOL/L (3.5-5.1); Risk Ratio 1.69; Total Protein 7.3 G/DL (6.4-8.2); VLDL Cholesterol 12.8 MG/DL
[2022-01-25] MEDS: LEVOTHYROXINE 25 MCG TABLET PO SCH (05:53)
[2022-01-25] MEDS: INSULIN REGULAR 100 UNIT/ML SUBCUT SCH ×4 (08:17→20:31)
[2022-01-25] MEDS: SODIUM BICARBONATE 650 MG TABLET PO SCH ×2 (09:16→20:33)
[2022-01-25] MEDS: ASPIRIN EC 81 MG TABLET PO SCH (09:16)
[2022-01-25] MEDS: SEVELAMER CARBONATE 800 MG TABLET PO SCH ×3 (09:16→17:23)
[2022-01-25] MEDS: carvediloL 25 MG TABLET PO SCH ×2 (09:17→20:33)
[2022-01-25] MEDS: ESCITALOPRAM 10 MG TABLET PO SCH (09:17)
[2022-01-25] MEDS: PANTOPRAZOLE 40 MG TABLET PO SCH (09:17)
[2022-01-25] MEDS: FUROSEMIDE 40 MG/4 ML VIAL IV SCH ×2 (09:44→15:45)
[2022-01-25] MEDS: INSULIN GLARGINE 100 UNIT/ML SUBCUT SCH (10:40)
[2022-01-25] MEDS: hydrALAZINE 25 MG TABLET PO SCH ×2 (16:28→20:33)
[2022-01-25] MEDS: MONTELUKAST 10 MG TABLET PO SCH (20:32)
[2022-01-25] MEDS: ATORVASTATIN 80 MG TABLET PO SCH (20:32)
[2022-01-25] MEDS: APIXABAN 5 MG TABLET PO SCH (20:33)
[2022-01-25] MEDS ORDERED: hydrALAZINE 25 MG TABLET PO SCH (21:00)
[2022-01-26 05:46] LABS: Basophils % 0.3 % (0.0-0.8); Eosinophils % 0.1 % (0.00-10.9); Hemoglobin 9.6 GM/DL (12.0-16.0); Immature Granulocytes % 0.7 %; Immature Granulocytes Absolute 0.08 #; Lymphocytes # 1.2 10*3/uL (1.4-4.0); Lymphocytes % 10.5 % (21.3-54.2); Mean Corpuscular Volume 90.9 FL (87-102); Mean Platelet Volume 11.8 FL (9.6-12.0); Monocytes % 8.8 % (1.7-12.7); Neutrophils % 79.6 % (38.7-73.9); Platelet Count 162 T/CUMM (130-400); Red Cell Distribution Width 16.6 % (9.3-17.3); White Blood Count 10.9 T/CUMM (4-12)
[2022-01-26] MEDS: LEVOTHYROXINE 25 MCG TABLET PO SCH (06:08)
[2022-01-26 06:24] LABS: Calcium 8.1 MG/DL (8.5-10.1); Osmolality,Calculated 294.4 MOS/KG (273-304); Potassium 4.2 MMOL/L (3.5-5.1)
[2022-01-26] MEDS: INSULIN REGULAR 100 UNIT/ML SUBCUT SCH ×2 (08:50→13:29)
[2022-01-26] MEDS: INSULIN GLARGINE 100 UNIT/ML SUBCUT SCH (08:50)
[2022-01-26] MEDS: SEVELAMER CARBONATE 800 MG TABLET PO SCH ×2 (08:52→13:29)
[2022-01-26] MEDS: PANTOPRAZOLE 40 MG TABLET PO SCH (08:52)
[2022-01-26] MEDS: SODIUM BICARBONATE 650 MG TABLET PO SCH (08:52)
[2022-01-26] MEDS: hydrALAZINE 25 MG TABLET PO SCH (08:53)
[2022-01-26] MEDS: FUROSEMIDE 40 MG/4 ML VIAL IV SCH (08:53)
[2022-01-26] MEDS: ASPIRIN EC 81 MG TABLET PO SCH (08:53)
[2022-01-26] MEDS: carvediloL 25 MG TABLET PO SCH (08:53)
[2022-01-26] MEDS: APIXABAN 5 MG TABLET PO SCH (08:53)
[2022-01-26] MEDS: ESCITALOPRAM 10 MG TABLET PO SCH (08:53)
[2022-01-26 13:36] VITALS: BP 127/67
[2022-01-27] MEDS ORDERED: FUROSEMIDE 40 MG/4 ML VIAL IV SCH (09:00)
== END 2022-01-26 15:30 | disposition home or self-care (01) | DRG 291 ==
LOC: N.ED 10:44 → N.EDINP 16:20 → N.TELES 17:40
PROVIDERS: ADMIT Internal Medicine; ATTEND Internal Medicine